=== PATIENT | female | born 1955 | race Caucasian/White ===

== ENCOUNTER 2023-07-09 08:21 | Emergency (ER) | payer OTHER, SELFPAY ==
[2023-07-09 08:25] VITALS: BP 152/67
--- NOTE | 2023-07-09 08:58 | ED.GENMED ---
History of Present Illness
General
Chief Complaint: Head Injury
Source: patient
Exam Limitations: none
Time Seen by Provider: 07/09/23 08:35
Nursing documentation reviewed up to this point in time: agreed with
Travel History
Have you had any contact with someone who has COVID-19?: No
Do you have any symptoms of coronavirus? Fever > 100 degrees, chills, cough, shortness of breath, sore throat, loss of taste or smell, muscle aches, or headache?: No
History of Present Illness
History of Present Illness:
Patient is a 67-year-old female with past medical history of hypertension diabetes high cholesterol came in via private vehicle for evaluation of fall. Patient reports around 1:00 in the morning she remembers walking to the bathroom and
remembering shutting a light out and states her right leg gave out and she fell. She woke up on the ground this morning prior to arrival. She is not sure if she was unconscious at the time of the fall. She reports her head has blood on it. She
does complain of mild headache and neck soreness. She presents with a cervical collar from triage. She is not on blood thinners. She called her coworker to let them know she was not coming into work and he brought her here to the ER. She does
live alone.
Past History
Past History
ED Past Medical History: CAD, HTN, Hypercholesterolemia, Hypothyroidism, Other (Thyroid storm, diabetes) and Other (Previous stroke, diabetes, CABG, status post [place], hypertension, hypothyroidism)
ED Past Surgical History: Other (cabg)
Social History
Tobacco: Non-smoker
Alcohol: None
Employment: Employed
Family History
Family History: Other (Mother with Crohn's father with [place] and stroke)
Review of Systems
Review of Systems
Allergies reviewed?: Yes
All Other Systems: ROS reviewed and negative except as documented in HPI and ROS
Constitutional: Reports no symptoms; Denies fever, fatigue or chills
EENT: Reports no symptoms
Respiratory: Reports no symptoms
Cardiac: Reports no symptoms
ABD/GI: Reports no symptoms; Denies nausea or vomiting
Musculoskeletal: Reports back pain (low back pain )
Skin: Reports other (scalp abrasion)
Hematologic/Lymphatic: Reports no symptoms
Psychiatric: Reports no symptoms
Phy Exam
General Physical Exam
General Presentation: no apparent distress
General age: appears stated age
General Skin: warm and dry
General Habitus: elderly
General Mental: alert
General Hydration: appears well hydrated
Cardiovascular Exam
Cardiovascular Exam: bradycardia
Pulmonary Exam
Pulmonary Exam: lungs clear and no respiratory distress
Neurological Exam
Neurological Exam: alert and oriented x3
[place] Coma Scale
Eye Opening: Spontaneous
Verbal Response: Oriented
Motor Response: Obeys Commands
GCS Total Score: 15
Musculoskeletal Exam
Musculoskeletal Exam: full ROM
Skin Exam
Skin Exam: normal color and warm/dry
Psychiatric Exam
Psychiatric Exam: normal mood/affect
Course
Orders/Labs/Results
Orders:
Orders
07/09/23 08:36
Electrocardiogram (*1) Urgent
Reason for Study: Syncope
07/09/23 08:37
EKG- Treatment ONCE
07/09/23 08:48
CT Cervical Spine W/o Iv Contr Urgent
Comment:
Reason For Exam: trauma
CT Head W/o Iv Contrast Urgent
Comment:
Reason For Exam: trauma
07/09/23 08:49
Cardiac Monitoring- Treatment ONCE
EKG- Treatment ONCE
IV Insert/Care/Rem.- Treatment PRN
Tetanus/Diphth/Acelpertussis [Adacel] 0.5 ml IM .ONCE ONE
07/09/23 09:04
Complete Blood Count/With Diff Urgent
Comprehensive Metabolic Panel Urgent
Creatine Phosphokinase Urgent
Comment: ADD ON
07/09/23 09:43
0.9% Sodium Chloride 1000 ml [Nss] 1,000 ml IV BOLUS
07/09/23 10:40
Acetaminophen [Tylenol] 650 mg PO NOW STA
Ketorolac [Toradol] 15 mg IV NOW STA
07/09/23 10:41
Lumbar Spine Complete, 4 View [CR Lumbar Spine Comp Min 4 Vw*] Urgent
Comment:
Reason For Exam: trauma
07/09/23 10:55
Add On- LAB Urgent
Tests Added?: cpk
07/09/23 13:15
Physical Therapy Consult [Pt Eval And Treat] Urgent
Activity Level: Ambulate
Abnormal Lab Results
07/09/23
09:04
MPV 11.9 H fL
(7.4-10.4)
BUN 18 H mg/dl
(7-17)
Creatinine 0.5 L mg/dL
(0.6-1.0)
Glucose 142 H mg/dl
(70-99)
AST 41 H U/L
(14-36)
ALT 42 H U/L
(0-35)
07/09/23 09:04
07/09/23 09:04
Vital Signs
Initial and Last Documented VS:
Initial Vital Signs
Temp Pulse Resp BP Pulse Ox
98.2 F 56 18 152/67 98
07/09/23 08:25 07/09/23 08:25 07/09/23 08:25 07/09/23 08:25 07/09/23 08:25
Last Documented Vital Signs
Temp Pulse Resp BP Pulse Ox
98.2 F 55 16 142/69 96
07/09/23 08:25 07/09/23 14:30 07/09/23 14:30 07/09/23 12:00 07/09/23 12:45
Mix House Operator consulted with Physician
Mix House Operator consulted with physician?: Yes
Name of Physician Consulted: Nat
MDM/Problems Addressed
Differential Diagnosis Includes:
Not limited to syncope, head injury, scalp laceration, lumbar fracture first contusion
MDM/Problems Addressed:
Patient is a 67-year-old female who presented to the ER for evaluation of fall. Patient presents to the awake alert as documented she was going to the bathroom at 1 AM and she remembers falling hitting the back of her head and woke up this morning.
She complains of stiff neck headache. She does have an obvious scalp laceration. She is not on blood thinners. She has no complaints of extremity injury. Patient presented with stable vital signs she is awake alert oriented x 3 no recent
illness no fevers here and has a normal white count stable hemoglobin. BUN 18 creatinine 0.5. Sinus bradycardia on EKG unchanged. Patient was given fluids here in the ER and monitored. CPK normal. Patient had a CAT scan of the head and cervical
spine which was negative. Patient did complain of some lumbar discomfort tender on exam but no obvious injury and lumbar spine x-rays negative. Patient was monitored here feeling better ambulatory evaluated by physical therapy wants to go home and
nontoxic. She was able to walk with her cane and is steady. She sat up and ate a meal here and is feeling better. Case reviewed with Dr. Johns will DC home. Not limited to syncope
*Critical Care Note
Total Time (30-74mins, 75-104mins- exclusive of procedures): Not Applicable
ED Attending Note
-
Portions of this chart may have been created with voice recognition software.� Occasional wrong word or��sound alike� substitutions may have occurred due to the inherent limitations of voice recognition software.
Discharge Plan
Departure
Patient Disposition: Home (Routine Discharge)
Date of Disposition: 07/09/23
Time of Disposition: 15:02
Patient with high blood pressure during this ER visit?: Yes
Condition: Fair
Covid-19: Not Applicable
Discharge Problem:
Head injury
Instructions: Head Injury in Adults (DC), Contusion (DC)
Prescriptions:
No Action
insulin glargine [Lantus Solostar U-100 Insulin] 300 UNITS/3 ML insulin pen
50 units SC DAILY
Patient Comments:
patient takes in the morning
citalopram 10 MG tablet
10 mg PO DAILY
aspirin 81 MG tablet,delayed release (DR/EC)
81 mg PO DAILY
levothyroxine 125 MCG tablet
125 mcg PO DAILY
ibuprofen 200 MG tablet
400 mg PO Q4HPRN PRN (Reason: pain)
Patient Comments:
11/08/15 patient took 600mg this morning
rosuvastatin [Crestor] 40 MG tablet
40 mg PO DAILY
acetaminophen 325 MG tablet
650 mg PO Q4HPRN PRN (Reason: mild pain/BEACH/temp> 100.4F) Qty: 0 0RF
lisinopril 20 MG tablet
20 mg PO DAILY Qty: 30 0RF
nifedipine 30 MG tablet extended release
30 mg PO DAILY Qty: 30 0RF
methylprednisolone [Medrol (Donnie)] 4 MG tablets,dose pack
4 tab PO . DIRECT Qty: 1 0RF
Referrals:
Jeremiah Cifuentes MD [Family Provider] -
Activity Restrictions/Additional Instructions:
Wash scalp wound with soap and water twice a day with soap and water apply small layer of antibiotic ointment to the area stay well-hydrated. Please follow-up with family doctor in the next 2 days for reevaluation of your symptoms and return of
any worsening of symptoms. Your CAT scans were negative for acute injury. You were hydrated here in the ER. You may take Tylenol for discomfort.
Interventions
Interventions:
*Risk Screen - Suicide Last Done: 07/09/23 08:39
*General Assessment Last Done: 07/09/23 15:16
*Neglect/Abuse Screening Last Done: 07/09/23 08:39
ED- Fall Risk Assessment Last Done: 07/09/23 08:44
*ED COVID-19 Vaccine History Last Done: 07/09/23 08:37
*Nursing Disposition Last Done: 07/09/23 15:16
ED- Neurological Assessment Last Done: 07/09/23 08:39
ED-Skin Assessment Last Done: 07/09/23 08:40
Discharge Date and Time
Discharge Date/Time: 07/09/23 15:17
Print Language: INDONESIAN
[2023-07-09 09:02] VITALS: BP 123/50
[2023-07-09 09:12] LABS: % Basophils 0.6 % (0-2); % Eosinophils 2.9 % (0-6); % Immature Granulocytes 0.3 % (0-0.5); % Lymphocytes 25.8 % (20.5-51.1); % Monocytes 5.1 % (1.7-9.3); % Neutrophils 65.3 % (42.2-75.2); Absolute Basophils 0.1 10^3/uL (0-0.2); Absolute Eosinophils 0.3 10^3/uL (0-0.7); Absolute Lymphocytes 2.3 10^3/uL (1.2-3.4); Absolute Monocytes 0.5 10^3/uL (0.1-0.6); Absolute Neutrophils 5.8 10^3/uL (1.4-6.5); Hematocrit 38.4 % (37.0-47.0); Hemoglobin 12.9 g/dL (12.0-16.0); Mean Corp Hgb Conc. 33.6 g/dL (33.0-37.0); Mean Corpuscular Hgb 29.5 pg (27.0-31.0); Mean Corpuscular Volume 87.9 fL (81.0-99.0); Mean Platelet Volume 11.9 fL (7.4-10.4); Nucleated Red Blood Cells % 0 %; Platelet Count 168 10^3/uL (130-400); Red Blood Cell Count 4.37 10^6/uL (4.20-5.40); Red Cell Dist. Width 12.9 % (11.5-14.5); White Blood Cell Count 8.9 10^3/uL (4.8-10.8)
[2023-07-09] MEDS: ADACEL 0.5 ML IM (09:22)
[2023-07-09 09:25] LABS: ALT (SGPT) 42 U/L (0-35); AST (SGOT) 41 U/L (14-36); Alkaline Phosphatase 66 U/L (38-126); Blood Urea Nitrogen 18 mg/dl (7-17); Calcium 9.6 mg/dl (8.4-10.2); Carbon Dioxide 26 mmol/L (22-30); Chloride 105 mmol/L (98-107); Glucose 142 mg/dl (70-99); Potassium 4.5 mmol/L (3.5-5.1); Sodium 136 mmol/L (135-145); Total Bilirubin 0.8 mg/dl (0.2-1.3); Total Protein 7.1 g/dl (6.3-8.2); eGFR > 60.00
[2023-07-09] MEDS: NSS 1000 IV (09:46)
[2023-07-09 10:10] VITALS: BP 142/51
[2023-07-09] MEDS: TYLENOL 650 MG PO (10:50)
[2023-07-09] MEDS: TORADOL 15 MG IV (10:50)
[2023-07-09 11:24] VITALS: BP 155/66
[2023-07-09 12:00] VITALS: BP 142/69
[2023-07-09 14:00] VITALS: PULSE 48
--- NOTE | 2023-07-09 14:36 | EDRN ---
call to lab again to see about pending CPK RESULT ( 3 HOURS WAIT). tHE MEDICAL DIR STATED IT WILL BE RESULTED IN 5 MINUTES
[2023-07-09 14:56] LABS: Creatine Phosphokinase 118 U/L (30-135)
== END 2023-07-09 15:17 | disposition home or self-care (01) ==
LOC: EMR 08:21
PROVIDERS: Nurse Practitioner; EMERGENCY PHYSICIAN Emergency Medicine; FAMILY PHYSICIAN Family Medicine
DX: S09.90XA Unspecified injury of head, initial encounter (principal); S01.01XA Laceration without foreign body of scalp, initial encounter; W19.XXXA Unspecified fall, initial encounter; I10 Essential (primary) hypertension; E11.9 Type 2 diabetes mellitus without complications; E78.00 Pure hypercholesterolemia, unspecified; Z23 Encounter for immunization
CPT/HCPCS: 99285; 96374; 96361; 90471; 70450; 72110; 72125; 80053; 82550; 85025; 90715; 93005

== ENCOUNTER 2023-10-16 15:53 | Emergency (ER) | payer OTHER, SELFPAY ==
[2023-10-16 15:56] VITALS: BP 103/71
--- NOTE | 2023-10-16 16:11 | ED.GENMED ---
History of Present Illness
<Rneetta Barroso MD, Resident - Last Filed: 10/16/23 18:27>
General
Chief Complaint: Dizziness
Time Seen by Provider: 10/16/23 16:11
History of Present Illness
History of Present Illness:
The patient is a 67 yo female who presented to ER today after she was seen by her PCP. The patient has been feeling lightheaded, dizziness and left side weakness since last 10 days. She reported that she was at [place] last week and fall down
twice. [employer] staff examined her at her sister`s home and they told that she had her left facial side dropped. But she did not want to go hospital there. She reported that she started to feel kind of unstable at the beginning of the June and
fall of from her car at the and of the June 2023. She was brought to [place] ER at that kay and her head CT results were unremarkable. Additionally, the patient reported some chest pain today am on her right side and she does not feel it now.
She denies current chest pain, shortness of breath, loosing her conciseness.
PMH:
Hypothyroidism
CAD
HL
DM 2
TIA (several) Underwent carotid revascularization
Carotis artery disease
Hx of complicated Stroke
DJD
CKD
If applicable-neuro sx onset
Date of onset of symptoms: 10/16/23
Past History
<Renetta Barroso MD, Resident - Last Filed: 10/16/23 18:27>
Past History
ED Past Medical History: CAD, HTN, Hypercholesterolemia, Hypothyroidism, Other (Thyroid storm, diabetes) and Other (Previous stroke, diabetes, CABG, status post [place], hypertension, hypothyroidism)
ED Past Surgical History: Other (cabg)
Social History
Tobacco: Non-smoker
Alcohol: None
Employment: Employed
Family History
Family History: Other (Mother with Crohn's father with [place] and stroke)
Phy Exam
<Renetta Barroso MD, Resident - Last Filed: 10/16/23 18:27>
General Physical Exam
General Presentation: moderate distress
General age: appears older than age
General Skin: warm
General Mental: alert
Eye Exam
Eye Exam: EOMI and conjunctiva normal
Cardiovascular Exam
Cardiovascular Exam: regular rate/rhythm, no edema and no JVD
Pulmonary Exam
Pulmonary Exam: lungs clear, no respiratory distress, no crackles, no stridor and no wheezing
Gastrointestinal Exam
Gastrointestinal Exam: non tender and soft
Neurological Exam
Neurological Exam: alert, oriented x3, CN II-XII intact, normal reflexs, speech normal, motor weakness (left upper/lower extremity motor exam 4/5), sensory deficit and other (Left uooer/lower extremity motor 4/5. Diminished sensation on left side of
the body and face. No fascial weakness)
Musculoskeletal Exam
Musculoskeletal Exam: full ROM and no edema
Course
<Renetta Barroso MD, Resident - Last Filed: 10/16/23 18:27>
Orders/Labs/Results
Orders:
Orders
10/16/23 15:59
Electrocardiogram (*1) Urgent
Reason for Study: Vertigo / Dizzy
EKG- Treatment ONCE
10/16/23 16:50
Comprehensive Metabolic Panel Urgent
Troponin I Urgent
Comment: dizziness
10/16/23 16:51
Complete Blood Count/With Diff Urgent
10/16/23 17:10
CT Head W/o Iv Contrast Urgent
Comment:
Reason For Exam: off-balance
Abnormal Lab Results
10/16/23 10/16/23
16:50 16:51
MPV 12.2 H fL
(7.4-10.4)
BUN 18 H mg/dl
(7-17)
Glucose 138 H mg/dl
(70-99)
10/16/23 16:51
10/16/23 16:50
Vital Signs
Initial and Last Documented VS:
Initial Vital Signs
Temp Pulse Resp BP Pulse Ox
98.0 F 61 16 103/71 98
10/16/23 15:56 10/16/23 15:56 10/16/23 15:56 10/16/23 15:56 10/16/23 15:56
Last Documented Vital Signs
Temp Pulse Resp BP Pulse Ox
98.0 F 52 15 154/68 96
10/16/23 15:56 10/16/23 18:15 10/16/23 18:15 10/16/23 17:00 10/16/23 18:15
<Zoë Martinez, DO - Last Filed: 10/16/23 18:47>
Orders/Labs/Results
Orders:
Orders
10/16/23 15:59
Electrocardiogram (*1) Urgent
Reason for Study: Vertigo / Dizzy
EKG- Treatment ONCE
10/16/23 16:50
Comprehensive Metabolic Panel Urgent
Troponin I Urgent
Comment: dizziness
10/16/23 16:51
Complete Blood Count/With Diff Urgent
10/16/23 17:10
CT Head W/o Iv Contrast Urgent
Comment:
Reason For Exam: off-balance
Abnormal Lab Results
10/16/23 10/16/23
16:50 16:51
MPV 12.2 H fL
(7.4-10.4)
BUN 18 H mg/dl
(7-17)
Glucose 138 H mg/dl
(70-99)
10/16/23 16:51
10/16/23 16:50
Vital Signs
Initial and Last Documented VS:
Initial Vital Signs
Temp Pulse Resp BP Pulse Ox
98.0 F 61 16 103/71 98
10/16/23 15:56 10/16/23 15:56 10/16/23 15:56 10/16/23 15:56 10/16/23 15:56
Last Documented Vital Signs
Temp Pulse Resp BP Pulse Ox
98.0 F 52 15 154/68 96
10/16/23 15:56 10/16/23 18:15 10/16/23 18:15 10/16/23 17:00 10/16/23 18:15
<Renetta Barroso MD, Resident - Last Filed: 10/16/23 18:27>
*Critical Care Note
Total Time (30-74mins, 75-104mins- exclusive of procedures): Not Applicable
<Renetta Barroso MD, Resident - Last Filed: 10/16/23 18:27>
Comment
Comment:
TIA, Head trauma, electrolyte imbalance,musculoskeletal problems?
ED Attending Note
<Renetta Barroso MD, Resident - Last Filed: 10/16/23 18:27>
-
Portions of this chart may have been created with voice recognition software.� Occasional wrong word or��sound alike� substitutions may have occurred due to the inherent limitations of voice recognition software.
<Zoë Martinez DO - Last Filed: 10/16/23 18:47>
ED Attending Note
Patient seen and examined by attending physician: Yes
I performed the substantive portion of visit, reviewed & personally made and approve the management plan that is documented in note by myself or BECKY.: Yes
I performed a history and physical exam of patient and discussed management with resident, I reviewed resident's note and agree with documented findings and plan of care.: Yes
ED Attending Note:
Patient seen and evaluated bedside. 67-year-old female with history of prior TIA and CVA presenting to the emergency department for dizziness and feeling off balance. Patient notes she been having balance issues essentially since June. She had a
fall in June, was seen in the emergency department, had a negative head CT. She reports about 10 years ago she had a stroke, found to have carotid stenosis, with stent placement. A week ago she was in [place], had 2 falls, which she reports
woke by feeling 'wobbly '. She attributes it to having some left-sided weakness, which she has had since June. She has been ambulating with a walker. She denies any new weakness or sensory issues. She saw her PCP today who advised to come to
the hospital for evaluation. Denies any present dizziness or chest pain. Vital signs within normal limits, bradycardic, however has not bradycardic on prior EKG in the past.
On exam, patient well-appearing, no acute distress. She is awake and alert. On neurologic exam, she is moving all extremities equally, slight objective weakness to the left lower extremity comparison to the right, however 5/5. Patient reports
some mildly decreased sensation to the left upper and lower extremity comparison to the right, however notes this is also been present since June. Suspect that patient's symptoms could be secondary to neurologic issues such as prior CVA, however
does not appear to be acute in nature send symptoms have been ongoing for several months. Will screen with laboratory analysis and CT brain. EKG obtained, nonischemic, no arrhythmia.
18:30 - EKG without acute stroke, does show old strokes. Continue to suspect that patient symptoms could be secondary to prior CVA. Patient has not been following with a neurologist. Feel patient warrants close neurologic follow-up. However,
given chronicity of symptoms, no indication for admission. Will start a baby aspirin. Strict return precautions were communicated to patient and friend at bedside who verbalized understanding.
Discharge Plan
Departure
Patient Disposition: Home (Routine Discharge)
Date of Disposition: 10/16/23
Time of Disposition: 18:38
Patient with high blood pressure during this ER visit?: No
Discharge Problem:
Balance problem
Instructions: Dizziness
Prescriptions:
No Action
insulin glargine [Lantus Solostar U-100 Insulin] 300 UNITS/3 ML insulin pen
50 units SC DAILY
Patient Comments:
patient takes in the morning
citalopram 10 MG tablet
10 mg PO DAILY
aspirin 81 MG tablet,delayed release (DR/EC)
81 mg PO DAILY
levothyroxine 125 MCG tablet
125 mcg PO DAILY
ibuprofen 200 MG tablet
400 mg PO Q4HPRN PRN (Reason: pain)
Patient Comments:
11/08/15 patient took 600mg this morning
rosuvastatin [Crestor] 40 MG tablet
40 mg PO DAILY
acetaminophen 325 MG tablet
650 mg PO Q4HPRN PRN (Reason: mild pain/BEACH/temp> 100.4F) Qty: 0 0RF
lisinopril 20 MG tablet
20 mg PO DAILY Qty: 30 0RF
nifedipine 30 MG tablet extended release
30 mg PO DAILY Qty: 30 0RF
methylprednisolone [Medrol (Donnie)] 4 MG tablets,dose pack
4 tab PO . DIRECT Qty: 1 0RF
Referrals:
Zak Pickett MD [Active] - (off-balance, prior CVA)
Jeremiah Cifuentes MD [Family Provider] -
Activity Restrictions/Additional Instructions:
You were seen in the emergency department for feeling off balanced
You were found to have a normal CT scan, however did show strokes that you had in the past. You will need to follow-up with a neurologist.
Please follow-up closely with your primary care physician.
Return to the emergency department for any worsening of your symptoms, or any development of chest pain, difficulty breathing, abdominal pain with persistent vomiting and inability to tolerate food or liquid by mouth (concern for dehydration),
weakness, headache or confusion, bili to walk, fever greater than 100.4, or any additional symptoms that are concerning to you.
Thank you for choosing [facility].
Interventions
Interventions:
*Risk Screen - Suicide Last Done: 10/16/23 16:40
*General Assessment Last Done: 10/16/23 16:40
*Neglect/Abuse Screening Last Done: 10/16/23 16:40
*ED COVID-19 Vaccine History Last Done: 10/16/23 16:40
ED- Neurological Assessment Last Done: 10/16/23 16:40
ED- Cardiac Assessment Last Done: 10/16/23 16:30
ED Swallowing Screen Last Done: 10/16/23 16:30
Discharge Date and Time
Print Language: [id number]
[2023-10-16 16:38] VITALS: BMI 34.5
[2023-10-16 16:39] VITALS: BP 117/52
[2023-10-16 17:00] VITALS: BP 154/68
[2023-10-16 17:04] LABS: % Basophils 0.4 % (0-2); % Eosinophils 4.5 % (0-6); % Immature Granulocytes 0.1 % (0-0.5); % Lymphocytes 32.8 % (20.5-51.1); % Monocytes 4.9 % (1.7-9.3); % Neutrophils 57.3 % (42.2-75.2); Absolute Eosinophils 0.3 10^3/uL (0-0.7); Absolute Lymphocytes 2.5 10^3/uL (1.2-3.4); Absolute Monocytes 0.4 10^3/uL (0.1-0.6); Absolute Neutrophils 4.4 10^3/uL (1.4-6.5); Hematocrit 38.4 % (37.0-47.0); Hemoglobin 13.3 g/dL (12.0-16.0); Mean Corp Hgb Conc. 34.6 g/dL (33.0-37.0); Mean Corpuscular Hgb 30.6 pg (27.0-31.0); Mean Corpuscular Volume 88.3 fL (81.0-99.0); Mean Platelet Volume 12.2 fL (7.4-10.4); Nucleated Red Blood Cells % 0 %; Platelet Count 169 10^3/uL (130-400); Red Blood Cell Count 4.35 10^6/uL (4.20-5.40); Red Cell Dist. Width 13.5 % (11.5-14.5); White Blood Cell Count 7.6 10^3/uL (4.8-10.8)
[2023-10-16 17:25] LABS: Troponin I < 0.012 ng/ml
[2023-10-16 17:31] LABS: ALT (SGPT) 17 U/L (0-35); AST (SGOT) 26 U/L (14-36); Albumin 4.1 g/dl (3.5-5.0); Alkaline Phosphatase 72 U/L (38-126); Blood Urea Nitrogen 18 mg/dl (7-17); Calcium 9.7 mg/dl (8.4-10.2); Carbon Dioxide 28 mmol/L (22-30); Chloride 104 mmol/L (98-107); Estimated Creatinine Clearance 67 ml/min; Glucose 138 mg/dl (70-99); Potassium 4.5 mmol/L (3.5-5.1); Sodium 138 mmol/L (135-145); Total Bilirubin 0.6 mg/dl (0.2-1.3); Total Protein 6.9 g/dl (6.3-8.2); eGFR > 60.00
== END 2023-10-16 18:51 | disposition home or self-care (01) ==
LOC: EMR 15:53
PROVIDERS: Student in an Organized Health Care Education/Training Program; EMERGENCY PHYSICIAN Student in an Organized Health Care Education/Training Program; FAMILY PHYSICIAN Family Medicine
DX: R26.89 Other abnormalities of gait and mobility (principal); Z86.73 Personal history of transient ischemic attack (TIA), and cerebral infarction without residual deficits
CPT/HCPCS: 99285; 70450; 80053; 84484; 85025; 93005

== ENCOUNTER 2024-11-12 11:24 | Emergency (ER) | payer OTHER, SELFPAY ==
[2024-11-12 11:26] VITALS: BP 179/83
[2024-11-12 12:00] VITALS: BP 158/84
[2024-11-12 12:09] VITALS: BMI 31.9
[2024-11-12 13:32] LABS: Hematocrit 39.6 % (37.0-47.0); Hemoglobin 13.2 g/dL (12.0-16.0); Mean Corp Hgb Conc. 33.3 g/dL (33.0-37.0); Mean Corpuscular Volume 84.3 fL (81.0-99.0); Nucleated Red Blood Cells % 0 %; Platelet Count 180 10^3/uL (130-400); Red Cell Dist. Width 13.2 % (11.5-14.5)
[2024-11-12 13:41] LABS: INR 0.85; PT 12.1 Sec (11.4-14.6)
[2024-11-12 13:55] LABS: ALT (SGPT) 24 U/L (0-35); AST (SGOT) 25 U/L (14-36); Albumin 4.5 g/dl (3.5-5.0); Alkaline Phosphatase 87 U/L (38-126); Blood Urea Nitrogen 11 mg/dl (7-17); Calcium 10.2 mg/dl (8.4-10.2); Carbon Dioxide 29 mmol/L (22-30); Chloride 105 mmol/L (98-107); Estimated Creatinine Clearance 96 ml/min; Glucose 142 mg/dl (70-99); Potassium 4.2 mmol/L (3.5-5.1); Sodium 140 mmol/L (135-145); Total Protein 7.9 g/dl (6.3-8.2); eGFR > 60.00
[2024-11-12 13:58] LABS: Troponin I < 0.012 ng/ml
[2024-11-12 14:03] LABS: APTT 22.5 Sec (23.4-35.0)
--- NOTE | 2024-11-12 15:36 | ED.MUSCINJ ---
HPI-Injury
General
Chief Complaint: Fall
Source: patient
Exam Limitations: none
Time Seen by Provider: 11/12/24 11:42
History of Present Illness-Injury
Initial Injury comments:
68-year-old female insulin-dependent diabetic with history of stroke coronary artery disease hyperlipidemia AR presents from home where she lives by herself with multiple falls. She states over the past week her left arm has been limp. She denies
associated chest pain or shortness of breath. She describes her fall as being more of a sliding out of her chair. The chair seems to push her into an angle where she slides out of chair ends up on the ground and is too weak to get herself off the
ground. She typically uses a cane to ambulate. There has been no fever. She does not drink alcohol. She denies headache or neck pain. No other complaints at this time
Past History
Past History
ED Past Medical History: CAD, HTN, Hypercholesterolemia, Hypothyroidism, Other (Thyroid storm, diabetes) and Other (Previous stroke, diabetes, CABG, status post [place], hypertension, hypothyroidism)
ED Past Surgical History: Other (cabg)
Social History
Tobacco: Non-smoker
Alcohol: None
Employment: Employed
Family History
Family History: Other (Mother with Crohn's father with AR and stroke)
Phy Exam
Physical Exam
Physical Exam:
General: Well-appearing female in no acute respiratory distress
HEENT: Normocephalic atraumatic
Heart: Regular rate and rhythm no murmurs lungs: Clear no wheeze
Abdomen is soft nontender nondistended
Neurologic exam: Alert and oriented x 3 no facial asymmetry dysarthria or aphasia. Good strength without any drift to the lower extremities bilaterally examination of the upper extremities demonstrates normal right upper extremity. She has a wrist
drop to the left upper extremity. She has weakness with elbow flexion but has strong elbow extension. She is unable to extend the wrist on the left side however she is able to lift the shoulder. She has good sensation to the left hand
Vascular: 2+ radial pulse left wrist skin is warm without erythema
Injury Course
Orders/Labs/Results
Orders:
Orders
11/12/24 11:29
Electrocardiogram (*1) Urgent
Reason for Study: Other
Other Reason for Exam: Possible Stroke
11/12/24 11:30
EKG- Treatment ONCE
11/12/24 11:32
CT Head W/o Iv Contrast Urgent
Comment:
Reason For Exam: frequent falls left arm weakness
11/12/24 11:33
CT Cervical Spine W/o Iv Contr Urgent
Comment:
Reason For Exam: left arm weakness
11/12/24 13:18
Complete Blood Count/With Diff Urgent
Comprehensive Metabolic Panel Urgent
Creatine Phosphokinase Urgent
Comment: ADD ON
PTT Urgent
Prothrombin Time Urgent
Troponin I Urgent
11/12/24 13:31
Add On- LAB Urgent
Tests Added?: cpk
11/12/24 15:00
Urinalysis Reflex To Culture Urgent
Date Specimen was Collected: 11/12/24
Time Specimen was Collected: 11:30
11/12/24 15:04
[place] Wrist Left-Treatment ONCE
11/12/24 15:35
Case Management Consult ONCE
Case Management Consult: VN/Home Care
Abnormal Lab Results
11/12/24
13:18
MPV 11.9 H fL
(7.4-10.4)
APTT 22.5 L Sec
(23.4-35.0)
Glucose 142 H mg/dl
(70-99)
11/12/24 13:18
11/12/24 13:18
MDM/Problems Addressed
Differential Diagnosis Includes:
Multiple falls. Patient describes a mechanical issue with a chair she sits and that she slides out of the chair and is unable to get herself off the ground. She states she was leaning on her arm for some time and since then she has been unable to
lift her elbow up. History of stroke. Consider recurrent TIA versus CVA versus intracranial hemorrhage versus peripheral nerve palsy.
Check labs urinalysis CT of head and cervical spine
*Pulse Oximetry
SaO2: 100
Oxygen Mode of Delivery: Room air
Patient hypoxic: no
*Critical Care Note
Total Time (30-74mins, 75-104mins- exclusive of procedures): Not Applicable
Update Note
Update Note:
CT of head and cervical spine showed no obvious acute findings.
Offered admission to hospital given her social status of living alone and multiple falls and dysfunctional left arm however the patient declined. Case management consult placed for visiting nurse to be set up. Patient will follow-up with her
family doctor
I did send a message to her doctor of record, Dr. Jeremiah Cifuentes via tiger text.
ED Attending Note
-
Portions of this chart may have been created with voice recognition software.� Occasional wrong word or��sound alike� substitutions may have occurred due to the inherent limitations of voice recognition software.
Discharge Plan
Departure
Patient Disposition: Home (Routine Discharge)
Date of Disposition: 11/12/24
Time of Disposition: 15:49
Patient with high blood pressure during this ER visit?: No
Discharge Problem:
Acute radial nerve palsy, Falls
Instructions: Preventing falls in adults
Prescriptions:
No Action
insulin glargine [Lantus Solostar U-100 Insulin] 300 UNITS/3 ML insulin pen
50 units SC DAILY
Patient Comments:
patient takes in the morning
citalopram 10 MG tablet
10 mg PO DAILY
aspirin 81 MG tablet,delayed release (DR/EC)
81 mg PO DAILY
levothyroxine 125 MCG tablet
125 mcg PO DAILY
ibuprofen 200 MG tablet
400 mg PO Q4HPRN PRN (Reason: pain)
Patient Comments:
11/08/15 patient took 600mg this morning
rosuvastatin [Crestor] 40 MG tablet
40 mg PO DAILY
acetaminophen 325 MG tablet
650 mg PO Q4HPRN PRN (Reason: mild pain/BEACH/temp> 100.4F) Qty: 0 0RF
lisinopril 20 MG tablet
20 mg PO DAILY Qty: 30 0RF
nifedipine 30 MG tablet extended release
30 mg PO DAILY Qty: 30 0RF
methylprednisolone [Medrol (Donnie)] 4 MG tablets,dose pack
4 tab PO . DIRECT Qty: 1 0RF
Referrals:
Jeremiah Cifuentes MD [Family Provider, Family Practice]
Activity Restrictions/Additional Instructions:
Use the brace to support your wrist. Please return here for any worsening symptoms otherwise follow-up closely with your doctor.
Interventions
Interventions:
*Risk Screen - Suicide Last Done: 11/12/24 11:26
*General Assessment Last Done: 11/12/24 11:26
*Neglect/Abuse Screening Last Done: 11/12/24 11:26
*ED COVID-19 Vaccine History Last Done: 11/12/24 11:26
ED-Musculoskeletal Assessment Last Done: 11/12/24 12:07
ED- Neurological Assessment Last Done: 11/12/24 12:04
ED-Skin Assessment Last Done: 11/12/24 12:07
Discharge Date and Time
Print Language: MACEDONIAN
--- NOTE | 2024-11-12 16:18 | CM ---
CM met with pt bedside
ED consult for VN
Referral to [facility] per request/[facility] Liaison
Address is [address] [place] [address] [place] [id number]
PCP visit within last month with Dr Jeremiah Cifuentes
--- NOTE | 2024-11-12 16:19 | VNURNOTE ---
Home Health Liaison met with patient and sig other at bedside to discuss [facility] nurse/therapy, visits, schedule and homebound status. Patient is agreeable and understands that visits at home will be 2-3 x per week to assess and teach medical
management.
Patient is aware that [facility] will contact them for start of care in 1-2 days after discharge from . Provided contact number for [facility].
[facility] referral completed in [facility].
--- NOTE | 2024-11-12 16:31 | EDRN ---
Reviewed discharge instructions with patient. Verbalized understanding. Taken to lobby in wheelchair.
[2024-11-12 16:35] VITALS: BP 153/82
== END 2024-11-12 16:30 | disposition home or self-care (01) ==
LOC: EMR 11:24
PROVIDERS: Emergency Medicine; EMERGENCY PHYSICIAN Emergency Medicine; FAMILY PHYSICIAN Family Medicine
DX: G56.32 Lesion of radial nerve, left upper limb (principal); E10.9 Type 1 diabetes mellitus without complications; I25.810 Atherosclerosis of coronary artery bypass graft(s) without angina pectoris; I10 Essential (primary) hypertension; E78.00 Pure hypercholesterolemia, unspecified; I25.2 Old myocardial infarction; E03.9 Hypothyroidism, unspecified; R29.6 Repeated falls; Z60.2 Problems related to living alone; Z79.4 Long term (current) use of insulin; Z79.82 Long term (current) use of aspirin; Z86.73 Personal history of transient ischemic attack (TIA), and cerebral infarction without residual deficits; Z95.1 Presence of aortocoronary bypass graft; Z82.3 Family history of stroke; Z82.49 Family history of ischemic heart disease and other diseases of the circulatory system
CPT/HCPCS: 99284; 70450; 72125; 80053; 82550; 84484; 85025; 85610; 85730; 93005

== ENCOUNTER 2024-11-16 13:45 | Emergency (ER) | payer OTHER, SELFPAY ==
[2024-11-16 13:48] VITALS: BP 178/77
--- NOTE | 2024-11-16 14:35 | ED.GENMED ---
History of Present Illness
General
Chief Complaint: Fall
Time Seen by Provider: 11/16/24 14:07
History of Present Illness
History of Present Illness:
68-year-old female with history of hypertension, diabetes, hyperlipidemia presenting after a fall. Patient reports chronic balance issues and prior to arrival was going out side of her house to get a food delivery. She lost her balance and fell
backwards, striking her head. Denies loss of conscious. She is not on a blood thinner. She denies any visual changes. She denies any weakness or numbness of her extremities. Does report a chronic left upper extremity weakness, suspect a
secondary to a nerve palsy. Denies fever or recent illness. Denies prodromal symptoms for a fall such as dizziness or lightheadedness. Denies any additional injuries. Denies additional acute medical complaints
Past History
Past History
ED Past Medical History: CAD, HTN, Hypercholesterolemia, Hypothyroidism, Other (Thyroid storm, diabetes) and Other (Previous stroke, diabetes, CABG, status post [place], hypertension, hypothyroidism)
ED Past Surgical History: Other (cabg)
Social History
Tobacco: Non-smoker
Alcohol: None
Employment: Employed
Family History
Family History: Other (Mother with Crohn's father with [place] and stroke)
Phy Exam
Physical Exam
Physical Exam:
General: Well-appearing, no clinical signs of dehydration, nontoxic and in no acute distress
HEENT: protecting airway
Head: Occipital hematoma with small laceration. Abrasion to the right parietal scalp
Neck: appears supple, no midline tenderness
CV: Normal heart rate, regular rhythm
Resp: No accessory muscle use, no increased work of breathing, lungs clear to auscultation bilaterally
Abd: No distention
Extremities: No deformities, no swelling
Neuro: alert, no focal neurologic deficit
: deferred
Rectal: deferred
Psych: Normal affect
Skin: Intact
Course
Orders/Labs/Results
Orders:
Orders
11/16/24 14:34
CT Head W/o Iv Contrast Urgent
Comment:
Reason For Exam: fall with occipital hematoma
Acetaminophen [Tylenol] 1,000 mg PO NOW STA
Vital Signs
Initial and Last Documented VS:
Initial Vital Signs
Temp Pulse Resp BP Pulse Ox
98.1 F 63 18 178/77 98
11/16/24 13:48 11/16/24 13:48 11/16/24 13:48 11/16/24 13:48 11/16/24 13:48
Last Documented Vital Signs
Temp Pulse Resp BP Pulse Ox
98.1 F 63 16 178/77 98
11/16/24 13:48 11/16/24 13:48 11/16/24 17:19 11/16/24 13:48 11/16/24 14:38
Procedures
Laceration Closure
Middle Posterior Scalp:
Status of Wound: clean
Size of Wound in cm: 2
Preparation: cleaned with saline
Type of Closure: single layer closure
Skin Closure Material: skin dre
Number of sutures: 2
MDM/Problems Addressed
MDM/Problems Addressed:
68-year-old female with hypertension, hyperlipidemia, diabetes presenting after a fall after losing her balance, positive head strike. Vital signs are significant for hypertension.
On exam, patient is resting comfortably, awake and alert. Patient with signs of head trauma, occipital hematoma with laceration. Additionally small abrasion to the right parietal scalp. Laceration was irrigated and repaired. Please see procedure
note. No additional signs of acute trauma on exam. No midline cervical neck tenderness. Given patient's head trauma and age, plan for CT brain imaging. Patient denies any prodromal symptoms to her fall without concern for near-syncope or syncope.
17:20 -CT head is negative. Patient remains hemodynamically stable. Feel stable for discharge with continued outpatient supportive therapy. Return precautions discussed with patient verbalized understanding
*Pulse Oximetry
SaO2: 98
Oxygen Mode of Delivery: Room air
Patient hypoxic: no
*Critical Care Note
Total Time (30-74mins, 75-104mins- exclusive of procedures): Not Applicable
ED Attending Note
-
Portions of this chart may have been created with voice recognition software.� Occasional wrong word or��sound alike� substitutions may have occurred due to the inherent limitations of voice recognition software.
Discharge Plan
Departure
Prescriptions:
No Action
insulin glargine [Lantus Solostar U-100 Insulin] 300 UNITS/3 ML insulin pen
50 units SC DAILY
Patient Comments:
patient takes in the morning
citalopram 10 MG tablet
10 mg PO DAILY
aspirin 81 MG tablet,delayed release (DR/EC)
81 mg PO DAILY
levothyroxine 125 MCG tablet
125 mcg PO DAILY
ibuprofen 200 MG tablet
400 mg PO Q4HPRN PRN (Reason: pain)
Patient Comments:
11/08/15 patient took 600mg this morning
rosuvastatin [Crestor] 40 MG tablet
40 mg PO DAILY
acetaminophen 325 MG tablet
650 mg PO Q4HPRN PRN (Reason: mild pain/BEACH/temp> 100.4F) Qty: 0 0RF
lisinopril 20 MG tablet
20 mg PO DAILY Qty: 30 0RF
nifedipine 30 MG tablet extended release
30 mg PO DAILY Qty: 30 0RF
methylprednisolone [Medrol (Donnie)] 4 MG tablets,dose pack
4 tab PO . DIRECT Qty: 1 0RF
Referrals:
Jeremiah Cifuentes MD [Family Provider, Family Practice]
Interventions
Interventions:
*Risk Screen - Suicide Last Done: 11/16/24 13:48
ED-Musculoskeletal Assessment Last Done: 11/16/24 17:19
ED- Neurological Assessment Last Done: 11/16/24 17:19
ED-Skin Assessment Last Done: 11/16/24 17:19
Discharge Date and Time
Print Language: MONEGASQUE
[2024-11-16] MEDS: TYLENOL 1000 MG PO (14:38)
[2024-11-16] MEDS: TORADOL 15 MG IM (17:28)
== END 2024-11-16 17:47 | disposition home or self-care (01) ==
LOC: EMR 13:45
PROVIDERS: EMERGENCY PHYSICIAN Student in an Organized Health Care Education/Training Program; FAMILY PHYSICIAN Family Medicine
DX: S01.01XA Laceration without foreign body of scalp, initial encounter (principal); W18.39XA Other fall on same level, initial encounter; I10 Essential (primary) hypertension; E78.00 Pure hypercholesterolemia, unspecified; E03.9 Hypothyroidism, unspecified; E11.9 Type 2 diabetes mellitus without complications; I25.10 Atherosclerotic heart disease of native coronary artery without angina pectoris; I25.2 Old myocardial infarction; Z95.1 Presence of aortocoronary bypass graft; Z86.73 Personal history of transient ischemic attack (TIA), and cerebral infarction without residual deficits
CPT/HCPCS: 96372; 12001; 99284; 70450

== ENCOUNTER 2024-12-14 09:38 | Inpatient (IN) | payer OTHER, SELFPAY ==
[2024-12-10 16:17] VITALS: BP 107/48
[2024-12-10 16:40] LABS: Hematocrit 38.2 % (37.0-47.0); Hemoglobin 12.9 g/dL (12.0-16.0); Mean Corp Hgb Conc. 33.8 g/dL (33.0-37.0); Mean Corpuscular Volume 86.2 fL (81.0-99.0); Nucleated Red Blood Cells % 0 %; Platelet Count 195 10^3/uL (130-400); Red Cell Dist. Width 14.1 % (11.5-14.5)
[2024-12-10 16:53] LABS: ALT (SGPT) 22 U/L (0-35); AST (SGOT) 26 U/L (14-36); Albumin 4.0 g/dl (3.5-5.0); Alkaline Phosphatase 70 U/L (38-126); Blood Urea Nitrogen 13 mg/dl (7-17); Calcium 9.3 mg/dl (8.4-10.2); Carbon Dioxide 30 mmol/L (22-30); Chloride 103 mmol/L (98-107); Estimated Creatinine Clearance 83 ml/min; Glucose 216 mg/dl (70-99); Potassium 4.3 mmol/L (3.5-5.1); Sodium 138 mmol/L (135-145); Total Protein 7.1 g/dl (6.3-8.2); eGFR > 60.00
[2024-12-10 17:29] LABS: Urine Character Clear (Clear)
--- NOTE | 2024-12-10 17:37 | ED.GENMED ---
History of Present Illness
<Mg Mayo, DO - Last Filed: 12/10/24 23:18>
General
Chief Complaint: Weakness
Time Seen by Provider: 12/10/24 16:40
<Nasreen Otero NP - Last Filed: 12/11/24 00:28>
General
Source: patient
Exam Limitations: none
Nursing documentation reviewed up to this point in time: agreed with
History of Present Illness
History of Present Illness:
Patient to ED with increasing weakness. States she has had multiple falls. SHe calls 911 to have ems or police help her off floor. She was seen in ED 11/12 for weakness to left arm following a fall, lying on floor for 5+ hours. Thought to be a
radial nerve palsy. She reports she is still having weakness in her arm and now arm is swollen. She denies any pain. Today her friend came by to see her and advised her to come to ED. Friend noted that she was much weaker than she has been,
unsteady on her feet. She denies fever/chills, recent illness. No n/v/d. No abd. pain, cp/pressure, SOB. Brought to ED via EMS for eval.
Past History
<Mg Mayo, DO - Last Filed: 12/10/24 23:18>
Past History
ED Past Medical History: CAD, HTN, Hypercholesterolemia, Hypothyroidism, Other (Thyroid storm, diabetes) and Other (Previous stroke, diabetes, CABG, status post [place], hypertension, hypothyroidism)
ED Past Surgical History: Other (cabg)
Social History
Tobacco: Non-smoker
Alcohol: None
Employment: Employed
Family History
Family History: Other (Mother with Crohn's father with NH and stroke)
Review of Systems
<Nasreen Otero LEAD FABRICATOR - Last Filed: 12/11/24 00:28>
Review of Systems
Allergies reviewed?: Yes
All Other Systems: ROS reviewed and negative except as documented in HPI and ROS
Constitutional: Reports fatigue
EENT: Reports no symptoms
Respiratory: Reports no symptoms
Cardiac: Reports no symptoms
ABD/GI: Reports no symptoms
: Reports no symptoms
Musculoskeletal: Reports other (swelling to left arm, weakness)
Skin: Reports no symptoms
Neurological: Reports weakness (generalized) and other (Left arm weakness and swelling)
Psychiatric: Reports no symptoms
Phy Exam
<Nasreen Otero LEAD FABRICATOR - Last Filed: 12/11/24 00:28>
General Physical Exam
General Presentation: mild distress
General age: appears stated age
General Skin: warm and dry
General Habitus: normal
General Mental: alert
Cardiovascular Exam
Cardiovascular Exam: regular rate/rhythm and no edema
Pulmonary Exam
Pulmonary Exam: lungs clear and no respiratory distress
Gastrointestinal Exam
Gastrointestinal Exam: normal bowel sounds and non tender
Neurological Exam
Neurological Exam: alert, oriented x3, CN II-XII intact and speech normal
Musculoskeletal Exam
Musculoskeletal Exam: neuro vasc intact and other (weakness swelling LUE)
Skin Exam
Skin Exam: normal color, warm/dry and no rash
Psychiatric Exam
Psychiatric Exam: normal mood/affect
Course
<Mg Mayo, DO - Last Filed: 12/10/24 23:18>
Orders/Labs/Results
Orders:
Orders
12/10/24 16:23
Electrocardiogram (*1) Urgent
Reason for Study: Abdominal Pain
EKG- Treatment ONCE
12/10/24 16:24
Complete Blood Count/With Diff Urgent
Comprehensive Metabolic Panel Urgent
Creatine Phosphokinase Urgent
Comment: ADD ON
TSH Reflex To Free T4 Routine
Comment: ADD ON
12/10/24 17:23
Urinalysis Reflex To Culture Urgent
Date Specimen was Collected: 12/10/24
Time Specimen was Collected: 17:22
Urine Microscopic Reflex Cult Urgent
Urine Culture Urgent
DARIUSZ Source: U
Specimen Description:
Date Specimen was Collected: 12/10/24
Time Specimen was Collected: 17:22
12/10/24 17:33
CT Head W/o Iv Contrast Urgent
Comment:
Reason For Exam: weakness, frequent falls
12/10/24 17:38
US Periph Venous UPPER Ext LT Urgent
Comment:
Reason For Exam: swelling
12/10/24 22:43
Admit/Transfer Patient As Directed
Co-Sign Provider:
Level of Care: Observation services
Assign to:: Medical/Surgical
Physician / Group: htay
Diagnosis: Falls, weakness, abnormal UA
Reason for Hospitalization: Falls - unremarkable labs
Generalized weakness unclear origins but suspect multifactorial plus
deconditioning
Abnormal UA - occult UTI with weakness
12/10/24 22:45
Code Status As Directed
Resuscitation Status: Full Code
Abnormal Lab Results
12/10/24 12/10/24
16:24 17:23
MPV 11.8 H fL
(7.4-10.4)
Glucose 216 H mg/dl
(70-99)
Leukocyte Esterase Rfl 3+ A
(Negative)
Urine WBC (Reflex) 11-15 A /HPF
(0-5)
Urine Bacteria (Reflex) Many A
(Negative)
Urine Glucose 1+ A
(Negative)
Urine Albumin (Reflex) 1+ A
(Neg - Trace)
12/10/24 16:24
12/10/24 16:24
Vital Signs
Initial and Last Documented VS:
Initial Vital Signs
Temp Pulse Resp BP Pulse Ox
97.9 F 50 20 107/48 95
12/10/24 16:17 12/10/24 16:17 12/10/24 16:17 12/10/24 16:17 12/10/24 16:17
Last Documented Vital Signs
Temp Pulse Resp BP Pulse Ox
97.5 F 59 27 160/76 96
12/10/24 19:17 12/10/24 22:15 12/10/24 22:15 12/10/24 22:00 12/10/24 22:45
<Nasreen Otero NP - Last Filed: 12/11/24 00:28>
Orders/Labs/Results
Orders:
Orders
12/10/24 16:23
Electrocardiogram (*1) Urgent
Reason for Study: Abdominal Pain
EKG- Treatment ONCE
12/10/24 16:24
Complete Blood Count/With Diff Urgent
Comprehensive Metabolic Panel Urgent
Creatine Phosphokinase Urgent
Comment: ADD ON
TSH Reflex To Free T4 Routine
Comment: ADD ON
12/10/24 17:23
Urinalysis Reflex To Culture Urgent
Date Specimen was Collected: 12/10/24
Time Specimen was Collected: 17:22
Urine Microscopic Reflex Cult Urgent
Urine Culture Urgent
DARIUSZ Source: U
Specimen Description:
Date Specimen was Collected: 12/10/24
Time Specimen was Collected: 17:22
12/10/24 17:33
CT Head W/o Iv Contrast Urgent
Comment:
Reason For Exam: weakness, frequent falls
12/10/24 17:38
US Periph Venous UPPER Ext LT Urgent
Comment:
Reason For Exam: swelling
12/10/24 22:43
Admit/Transfer Patient As Directed
Co-Sign Provider:
Level of Care: Observation services
Assign to:: Medical/Surgical
Physician / Group: htay
Diagnosis: Falls, weakness, abnormal UA
Reason for Hospitalization: Falls - unremarkable labs
Generalized weakness unclear origins but suspect multifactorial plus
deconditioning
Abnormal UA - occult UTI with weakness
12/10/24 22:45
Code Status As Directed
Resuscitation Status: Full Code
Abnormal Lab Results
12/10/24 12/10/24
16:24 17:23
MPV 11.8 H fL
(7.4-10.4)
Glucose 216 H mg/dl
(70-99)
Leukocyte Esterase Rfl 3+ A
(Negative)
Urine WBC (Reflex) 11-15 A /HPF
(0-5)
Urine Bacteria (Reflex) Many A
(Negative)
Urine Glucose 1+ A
(Negative)
Urine Albumin (Reflex) 1+ A
(Neg - Trace)
12/10/24 16:24
12/10/24 16:24
Vital Signs
Initial and Last Documented VS:
Initial Vital Signs
Temp Pulse Resp BP Pulse Ox
97.9 F 50 20 107/48 95
12/10/24 16:17 12/10/24 16:17 12/10/24 16:17 12/10/24 16:17 12/10/24 16:17
Last Documented Vital Signs
Temp Pulse Resp BP Pulse Ox
97.5 F 59 27 160/76 96
12/10/24 19:17 12/10/24 22:15 12/10/24 22:15 12/10/24 22:00 12/10/24 22:45
<Mg Mayo, DO - Last Filed: 12/10/24 23:18>
*Pulse Oximetry
SaO2: 95
Oxygen Mode of Delivery: Room air
<Nasreen Otero LEAD FABRICATOR - Last Filed: 12/11/24 00:28>
*Radiology
Radiology exam reviewed: radiology read reviewed
*Pulse Oximetry
Patient hypoxic: no
*Critical Care Note
Total Time (30-74mins, 75-104mins- exclusive of procedures): Not Applicable
<Nasreen Otero NP - Last Filed: 12/11/24 00:28>
Update Note
Update Note:
Patient to ED wtih report of worsening weakness, increasing falls - 10 x in 2 weeks Last fall was yesterday. She reports feeling unsteady. VSS, she remains afebrile. Labs reviewed, CT report reviewed, no concerning findings. She continues to
report weakness, numbness to LUE, recent diagnosis of radial nerve palsy. Now with swelling. US neg for DVT. Will admit to hospitalist for increasing weakness, frequent falls. Case discussed with Dr. Mayo who aslo evalutaed this patient. He
agrees with findings and plan.
ED Attending Note
<Mg Mayo DO - Last Filed: 12/10/24 23:18>
ED Attending Note
Patient seen and examined by attending physician: Yes
ED Attending Note:
I have reviewed and agree with history and treatment plan by Nasreen Otero. My exam revealed 68-year-old female with left wrist drop. Ambulation not assessed due to her weakness. Admit for further workup. Patient unsafe discharge at this time.
No signs of DVT.
-
Portions of this chart may have been created with voice recognition software.� Occasional wrong word or��sound alike� substitutions may have occurred due to the inherent limitations of voice recognition software.
Discharge Plan
Departure
Patient Disposition: Admit
Date of Disposition: 12/10/24
Time of Disposition: 22:03
Presentation/result/management discussed w/ accepting MD/DO: Hospitalist
Patient with high blood pressure during this ER visit?: No
Condition: Fair
Discharge Problem:
Weakness
Interventions
Interventions:
*Risk Screen - Suicide Last Done: 12/10/24 16:17
*General Assessment Last Done: 12/10/24 16:17
*Neglect/Abuse Screening Last Done: 12/10/24 16:17
*ED- Fall Risk Assessment Last Done: 12/10/24 19:13
*ED COVID-19 Vaccine History Last Done: 12/10/24 17:00
*ED Influenza Vaccine History Last Done: 12/10/24 17:00
ED- Cardiac Assessment Last Done: 12/10/24 19:13
ED- Neurological Assessment Last Done: 12/10/24 19:13
ED- Pulmonary Assessment Last Done: 12/10/24 19:13
[2024-12-10 17:43] LABS: Urine Squamous Cell >30 /LPF (Few)
[2024-12-10 17:44] LABS: Urine Red Blood Cell 0-2 /HPF (0-2)
[2024-12-10 19:02] VITALS: BP 127/78
[2024-12-10 20:37] VITALS: BP 142/69
[2024-12-10 21:00] VITALS: BP 141/73
[2024-12-10 22:00] VITALS: BP 160/76
--- NOTE | 2024-12-10 22:21 | HPS.HSE ---
Family Physician
-
Family Physician: Jeremiah Cifuentes
Chief Complaint
-
weakness and falls
History of Present Illness
68F HX CAD, CABG, MA, HTN, Hypercholesterolemia, Hypothyroidism, Thyroid storm, IDDM, stroke seen at ER:
- brought to ED via EMS for eval.
- pw increasing weakness complicated by multiple falls
- she calls 911 to have EMS or police help her off floor, was seen in ED 11/12 for weakness to left arm following a fall lying on floor for 5+ hours, complicated by presumed radial nerve palsy.
She reports she is still having weakness in her arm and now arm is swollen but denies any pain.
- Today Friend noted that she was much weaker than she has been, unsteady on her feet.
ROS
denies fever/chills, recent illness. No n/v/d. No abd. pain, cp/pressure, SOB.
Medical History
Past Medical History
Past Medical History: Reports CAD, CVA, HTN, Hypercholesterolemia, Hypothyroidism, IDDM and MA
Past Surgical History: Reports Cardiac (CABG )
Social History
Tobacco: Non-smoker
Alcohol: None
Family History
Family History: Other (Mother with Crohn's father with MA and stroke))
Allergies / Home Medications
Allergies reflects when Allergies were last updated in [facility].
Home Medications with original date entered in [facility]
Allergy/Medication List:
Allergies
Allergy/AdvReac Type Severity Reaction Status Date / Time
latex (Latex) Allergy Mild rash- Verified 12/10/24 16:22
slight
Home Medications
insulin glargine 100 unit/mL (3 mL) subcutaneous pen (Lantus Solostar U-100 Insulin) 50 units SC DAILY 08/15/10
aspirin 81 mg tablet,delayed release 81 mg PO DAILY 11/08/15
citalopram 10 mg tablet 10 mg PO DAILY 11/08/15
ibuprofen 200 mg tablet 400 mg PO Q4HPRN PRN pain 11/08/15
levothyroxine 125 mcg tablet 125 mcg PO DAILY 11/08/15
rosuvastatin 40 mg tablet (Crestor) 40 mg PO DAILY 11/08/15
acetaminophen 325 mg tablet 650 mg (2 x 325 mg) PO Q4HPRN PRN mild pain/BEACH/temp> 100.4F ##0 11/10/15
lisinopril 20 mg tablet 20 mg PO DAILY ##30 11/10/15
methylprednisolone 4 mg tablets in a dose pack (Medrol (Donnie)) 4 tab (4 x 4 mg) PO . DIRECT ##1 11/10/15
nifedipine 30 mg tablet,extended release 30 mg PO DAILY ##30 11/10/15
Review of Systems
-
Constitutional: Reports No Symptoms
EENT: Reports No Symptoms
Respiratory: Reports No Symptoms
Cardiac: Reports No Symptoms
Abdomen/GI: Reports No Symptoms
: Reports No Symptoms
Musculoskeletal: Reports No Symptoms
Skin: Reports No Symptoms
Neurological: Reports See HPI, Weakness (Lt arm) and Other (generalized weakness in both legs )
Endocrine: Reports No Symptoms
Hematologic/Lymphatic: Reports No Symptoms
Psych: Reports No Symptoms
Physical Exam
Vital Signs
Vital Signs
Temp Pulse Resp BP Pulse Ox
97.5 F 70 26 141/73 94
12/10/24 19:17 12/10/24 21:45 12/10/24 21:45 12/10/24 21:00 12/10/24 21:30
Physical Exam
General: Well Developed, Well Nourished and No Apparent Distress
HEENT: NormoCephalic, Moist mucous membranes and Atraumatic
Respiratory: Clear
Cardiac: S1/S2 and Regular Rhythm; No Murmur or Rub
GI: Soft, Non Tender, Non Distended and Normal Bowel Sounds; No Organomegaly
Rectal: Deferred by Provider
Musculoskeletal: No Clubbing, No Cyanosis and No Edema
Skin: No Rash
Neuro: Nonfocal/grossly intact
Laboratory Results
-
12/10/24 16:24
12/10/24 16:24
Laboratory Results
Total Bilirubin 0.7 mg/dl (0.2-1.3) 12/10/24 16:24
AST 26 U/L (14-36) 12/10/24 16:24
ALT 22 U/L (0-35) 12/10/24 16:24
Alkaline Phosphatase 70 U/L (38-126) 12/10/24 16:24
Data Reviewed
-
CT Scan: Report Reviewed by me
Ultrasound: Report Reviewed by me
Lab Data: Labs Reviewed by me
Old Records: Reviewed
Impression/Plan
-
Vital Signs
Temp Pulse Resp BP Pulse Ox
97.5 F 70 26 141/73 94
12/10/24 19:17 12/10/24 21:45 12/10/24 21:45 12/10/24 21:00 12/10/24 21:30
12/10/24
16:24
WBC 8.1
Potassium 4.3
Carbon Dioxide 30
Creatinine 0.7
eGFR > 60.00
EKG
SINUS BRADYCARDIA
OTHERWISE NORMAL ECG
WHEN COMPARED WITH ECG OF 12-Nov-2024 11:36,
NO SIGNIFICANT CHANGE WAS FOUND
Confirmed by TITO WYNN MD ([id number]) on 12/10/2024 4:54:22 PM
US Periph Venous UPPER Ext LT
No sonographic evidence for left upper extremity venous thrombosis.
CT Head W/o Iv Contrast
No acute intracranial abnormality noted.
No acute intracranial hemorrhage.
Chronic findings, including chronic ischemic change, chronic lacunar infarcts, and small remote posterior superior right frontal infarct. Atrophy.
ASSESSMENT & PLAN
Pending Rx reconciliation
Falls - unremarkable labs
Generalized weakness unclear origins but suspect multifactorial plus deconditioning
Abnormal UA - occult UTI with weakness
- NEG HCT
- check TSH, CPK
- Empiric gentle IVF
- [facility] IV CFTZ & FU UCX
- PT/OT
- CRM consult eval for SNF
Known HX
IDDM HX
HX CAD, CABG, MA
[facility] HTN
Hypercholesterolemia
Hypothyroidism
HX stroke
- Pending Rx reconciliation
DVT Px: LMWH
Full code
Obs MS
[2024-12-11] VITALS (7 sets, daily range): BP systolic 143–174; BP diastolic 60–87; PULSE 50–60; O2SAT 94; BMI 32.2
[2024-12-11] MEDS: NSS 1000 IV (01:40)
[2024-12-11 01:45] LABS: Glucose - Point of Care 269 mg/dl (70-99)
--- NOTE | 2024-12-11 03:45 | TRANSFER ---
Pt transferred to 3W from ED via stretcher. Pt stood and pivoted to hospital bed. Pt AAOx3, oriented to room, call de la cruz within reach, Plan of care ongoing.
[2024-12-11] MEDS: SYNTHROID 125 MCG PO (05:39)
[2024-12-11 07:52] LABS: Glucose - Point of Care 151 mg/dl (70-99)
[2024-12-11 08:05] LABS: Hematocrit 35.8 % (37.0-47.0); Hemoglobin 12.0 g/dL (12.0-16.0); Mean Corp Hgb Conc. 33.5 g/dL (33.0-37.0); Mean Corpuscular Volume 84.6 fL (81.0-99.0); Platelet Count 190 10^3/uL (130-400); Red Cell Dist. Width 14.1 % (11.5-14.5)
[2024-12-11] MEDS: ZESTRIL 20 MG PO (08:14)
[2024-12-11] MEDS: ASPIR LOW (ENTERIC COATED) 81 MG PO (08:14)
[2024-12-11] MEDS: CRESTOR 40 MG PO (08:14)
--- NOTE | 2024-12-11 08:40 | VNURNOTE ---
Chart reviewed. Patient is current with [facility]. Will continue to follow hospital course and DC plans.
[2024-12-11 08:44] LABS: Blood Urea Nitrogen 10 mg/dl (7-17); Calcium 9.2 mg/dl (8.4-10.2); Carbon Dioxide 24 mmol/L (22-30); Chloride 107 mmol/L (98-107); Estimated Creatinine Clearance 96 ml/min; Glucose 137 mg/dl (70-99); Potassium 4.1 mmol/L (3.5-5.1); Sodium 136 mmol/L (135-145); eGFR > 60.00
[2024-12-11] MEDS: NOVOLOG FLEXPEN-LOW RESISTANCE 1 UNITS SC ×3 (09:55→17:10)
[2024-12-11 10:11] LABS: Glycohemoglobin (HgbA1c) 7.1 % (4.0-5.6)
--- NOTE | 2024-12-11 10:29 | CM ---
Patient seen at bedside on . Patient states that she lives alone in a 2 story home with 4 steps to enter. Patient states that she is current with [facility] and she is planning to move to [place] with sisters soon. Patient PCP is Dr. Cifuentes and
she uses the [facility] in [place] for pharmacy needs. Patient does not drive and has friends to assist. Patient reviewed OBS form and completed form placed on chart. Patient plan is for discharge home with VN; [facility] and transition with sister to
[place] when everything is ready. CM will continue to follow for discharge planning needs.
Plan; home with VN: [facility], friends to transport.
[2024-12-11 12:04] LABS: Glucose - Point of Care 180 mg/dl (70-99)
--- NOTE | 2024-12-11 12:23 | W.PN.HOSP.TC ---
Today's Communication/Plan
-
MRI brain w/o contrast
check b12/folate/covid
pt/ot evaluation
Assessment / Plan
Assessment / Plan
1. Mechanical fall
Left-sided weakness
- Patient had reported left facial droop which resolved. Physical therapy also noted some left-sided weakness and left tongue deviation
- CT head did not show any acute stroke
- MRI brain without contrast ordered
- Check COVID/B12/folate. TSH within normal limit
- Patient may require short stay of rehab.
2. Depression/anxiety
- Maintained on home dose of citalopram
3. Insulin-dependent diabetes mellitus
- Dose of long-acting insulin unclear, A1c of 7.2
- Maintained on insulin sliding scale with Lantus 15 units at bedtime
4. Essential hypertension
- Continue home dose of lisinopril. Procardia on hold
5. Hypothyroidism
- Maintained on levothyroxine
DVT OPPX - scd
Full code
Total time spent : 53 mins
Anticipated Discharge: Within 24 hours
Subjective/Interval History
-
Date of Service: December 11, 2024
Resting comfortably in bed
Not voicing any complaints
Objective Data
-
Labs:
Laboratory Results
12/11/24
07:29
WBC 7.5
Hgb 12.0
Hct 35.8 L
Plt Count 190
Sodium 136
Potassium 4.1
Chloride 107
Carbon Dioxide 24
BUN 10
Creatinine 0.6
Glucose 137 H
Calcium 9.2
Vital Signs:
Vital Signs
Temp Pulse Resp BP Pulse Ox
98 F 51 16 157/66 96
12/11/24 07:34 12/11/24 07:34 12/11/24 07:34 12/11/24 07:34 12/11/24 07:34
I&O
12/10/24 12/11/24 12/12/24
06:59 06:59 06:59
Intake Total 960 / 960
Balance 960 / 960
Review of Systems
-
Respiratory: Reports No Symptoms
Cardiac: Reports No Symptoms
Abdomen/GI: Reports No Symptoms
Physical Exam
-
General: Negative Appears in Distress
HEENT: Negative Oxygen
Neuro: Awake, Alert and Oriented
[2024-12-11 13:34] LABS: Folate 4.0 ng/ml (2.76-20); Vitamin B12 274 pg/ml (239-931)
[2024-12-11 17:02] LABS: Glucose - Point of Care 186 mg/dl (70-99)
[2024-12-11] MEDS: LOVENOX 40 MG SC (17:10)
[2024-12-11 21:55] LABS: Glucose - Point of Care 150 mg/dl (70-99)
[2024-12-11 22:27] LABS: COVID-19 Antigen Negative (Negative)
[2024-12-11] MEDS: LANTUS 0.15 UNITS SC (22:31)
[2024-12-12] MEDS: SYNTHROID 125 MCG PO (06:36)
[2024-12-12] MEDS: NOVOLOG FLEXPEN-LOW RESISTANCE SC (07:47)
[2024-12-12] MEDS: ASPIR LOW (ENTERIC COATED) 81 MG PO (07:48)
[2024-12-12] MEDS: CRESTOR 40 MG PO (07:48)
[2024-12-12] MEDS: ZESTRIL 20 MG PO (07:48)
[2024-12-12 07:52] LABS: Glucose - Point of Care 134 mg/dl (70-99)
[2024-12-12 08:05] VITALS: BP 153/69
[2024-12-12] MEDS: NSS IV (09:55)
[2024-12-12 12:05] LABS: Glucose - Point of Care 176 mg/dl (70-99)
[2024-12-12] MEDS: NOVOLOG FLEXPEN-LOW RESISTANCE 1 UNITS SC ×2 (12:24→17:12)
--- NOTE | 2024-12-12 12:38 | CM ---
PT/OT rec SNF - discussed with patient and she is agreeable
[email or web address] care compare Information given to patient
referrals to [facility], [facility] entered in [facility]
Will need to obtain insurance auth from [facility]
PLAN: SNF, pending acceptance/bed availability when stable, Will need ins auth
--- NOTE | 2024-12-12 14:31 | W.PN.HOSP.TC ---
Today's Communication/Plan
-
f/u MR brain
discharge planning for snf rehab
Assessment / Plan
Assessment / Plan
1. Mechanical fall
Left-sided weakness
- Patient had reported left facial droop which resolved. Physical therapy also noted some left-sided weakness and left tongue deviation
- CT head did not show any acute stroke
- MRI brain without contrast ordered and pending
- COVID/b12/folate wnl. TSH within normal limit
- Patient may require short stay of rehab.
2. Depression/anxiety
- Maintained on home dose of citalopram
3. Insulin-dependent diabetes mellitus
- Dose of long-acting insulin unclear, A1c of 7.2
- Maintained on insulin sliding scale with Lantus 15 units at bedtime
4. Essential hypertension
- Continue home dose of lisinopril. resumed back procardia xl
5. Hypothyroidism
- Maintained on levothyroxine
DVT OPPX - scd
Full code
Anticipated Discharge: Within 24 hours
Subjective/Interval History
-
Date of Service: December 12, 2024
no complains overnight
Objective Data
-
Vital Signs:
Vital Signs
Temp Pulse Resp BP Pulse Ox
97.9 F 46 14 153/69 96
12/12/24 08:05 12/12/24 08:05 12/12/24 08:05 12/12/24 08:05 12/12/24 08:05
I&O
12/11/24 12/12/24 12/13/24
06:59 06:59 06:59
Intake Total 960 / 960 1140 / 1140
Balance 960 / 960 1140 / 1140
Review of Systems
-
Respiratory: Reports No Symptoms
Cardiac: Reports No Symptoms
Abdomen/GI: Reports No Symptoms
Physical Exam
-
General: Negative Appears in Distress
HEENT: Negative Oxygen
Neuro: Awake, Alert and Oriented
[2024-12-12 15:33] VITALS: BP 138/58
[2024-12-12 16:42] LABS: Glucose - Point of Care 189 mg/dl (70-99)
[2024-12-12] MEDS: LOVENOX 40 MG SC (17:13)
[2024-12-12 21:48] LABS: Glucose - Point of Care 146 mg/dl (70-99)
[2024-12-12] MEDS: LANTUS 0.15 UNITS SC (22:26)
[2024-12-12 23:00] VITALS: BP 155/65
[2024-12-13] MEDS: SYNTHROID 125 MCG PO (06:15)
[2024-12-13] MEDS: CRESTOR 40 MG PO (07:45)
[2024-12-13] MEDS: ASPIR LOW (ENTERIC COATED) 81 MG PO (07:45)
[2024-12-13] MEDS: ZESTRIL 20 MG PO (07:46)
[2024-12-13 07:59] VITALS: BP 160/62
[2024-12-13] MEDS: NOVOLOG FLEXPEN-LOW RESISTANCE SC ×2 (08:00→17:33)
[2024-12-13 08:02] LABS: Glucose - Point of Care 122 mg/dl (70-99)
[2024-12-13 11:41] LABS: Glucose - Point of Care 177 mg/dl (70-99)
--- NOTE | 2024-12-13 11:50 | W.PN.HOSP.TC ---
Today's Communication/Plan
-
Await MRI brain report to rule out any subacute stroke
Continue PT OT
Dispo planning
Assessment / Plan
Assessment / Plan
1. Mechanical fall
Left-sided weakness
- Patient had reported left facial droop which resolved. Physical therapy also noted some left-sided weakness and left tongue deviation
- CT head did not show any acute stroke
- MRI brain without contrast ordered and pending
- COVID/b12/folate wnl. TSH within normal limit
- Patient may require short stay of rehab.
2. Depression/anxiety
- Maintained on home dose of citalopram
3. Insulin-dependent diabetes mellitus
- Dose of long-acting insulin unclear, A1c of 7.2
- Maintained on insulin sliding scale with Lantus 15 units at bedtime
4. Essential hypertension
- Continue home dose of lisinopril. resumed back procardia xl
5. Hypothyroidism
- Maintained on levothyroxine
DVT OPPX - scd
Full code
Anticipated Discharge: Within 24 hours
Subjective/Interval History
-
Date of Service: December 13, 2024
Denies of having any issues overnight
Remains weak lethargic
Objective Data
-
Vital Signs:
Vital Signs
Temp Pulse Resp BP Pulse Ox
98.3 F 49 16 160/62 95
12/13/24 07:59 12/13/24 07:59 12/13/24 07:59 12/13/24 07:59 12/13/24 07:59
I&O
12/12/24 12/13/24 12/14/24
06:59 06:59 06:59
Intake Total 1140 / 1140 1200 / 1200
Balance 1140 / 1140 1200 / 1200
Review of Systems
-
Respiratory: Reports No Symptoms
Cardiac: Reports No Symptoms
Abdomen/GI: Reports No Symptoms
Physical Exam
-
General: Negative Appears in Distress
HEENT: Negative Oxygen
Neuro: Awake, Alert and Oriented
[2024-12-13] MEDS: NOVOLOG FLEXPEN-LOW RESISTANCE 1 UNITS SC (14:05)
[2024-12-13] MEDS: PROCARDIA XL (EXTENDED RELEASE) 30 MG PO (14:06)
[2024-12-13 15:11] VITALS: BP 157/61
[2024-12-13 16:44] VITALS: BP 157/61; PULSE 50; O2SAT 96
[2024-12-13 17:17] LABS: Glucose - Point of Care 145 mg/dl (70-99)
[2024-12-13] MEDS: LOVENOX 40 MG SC (17:34)
[2024-12-13 21:38] LABS: Glucose - Point of Care 181 mg/dl (70-99)
[2024-12-13] MEDS: LANTUS 0.15 UNITS SC (22:46)
[2024-12-13 23:57] VITALS: BP 145/63
[2024-12-14] MEDS: SYNTHROID 125 MCG PO (05:27)
[2024-12-14 07:00] VITALS: BP 123/52
[2024-12-14 08:20] LABS: Glucose - Point of Care 82 mg/dl (70-99)
[2024-12-14] MEDS: NOVOLOG FLEXPEN-LOW RESISTANCE SC ×2 (08:20→16:54)
[2024-12-14] MEDS: PROCARDIA XL (EXTENDED RELEASE) 30 MG PO (08:28)
[2024-12-14] MEDS: ASPIR LOW (ENTERIC COATED) 81 MG PO (08:28)
[2024-12-14] MEDS: CRESTOR 40 MG PO (08:29)
[2024-12-14] MEDS: ZESTRIL 20 MG PO (08:29)
--- NOTE | 2024-12-14 09:09 | CON.NEURO4 ---
Consultation - Neurology 4
-
CONSULTING PHYSICIAN: Anthony Higgins MD
REFERRING PHYSICIAN: Salvador Salinas MD
DICTATED BY: Anthony Higgins MD
DATE/TIME OF REQUEST: 12/14/2024
DATE/TIME OF CONSULTATION: 12/14/2024
Reason for Consultation: Weakness
Assessment and Plan:
The patient is a 69 years old female with a past medical history of CAD, CABG, UT, hypertension, hypercholesterolemia, IDDM and stroke, presented to the ER by EMS for increasing weakness in the left arm and left leg along with multiple falls. The
patient says that the left-sided weakness started about a month ago. MRI of the brain was done that showed a large acute and subacute infarction in the right middle cerebral artery territory.
CTA head/neck shows complete occlusion of the right internal carotid artery and 50 to 70% diameter stenosis of the proximal left internal carotid artery.
The patient had right hemispheric stroke secondary occlusion of the right ICA.
History of Present Illness:
The patient is a 68 years old female with a past medical history of CAD, CABG, UT, hypertension, hypercholesterolemia, IDDM and stroke, presented to the ER by EMS for increasing weakness in the left arm and left leg along with multiple falls. The
patient says that the left-sided weakness started about a month ago. MRI of the brain was done that showed a large acute and subacute infarction in the right middle cerebral artery territory.
Past Medical History: As given above in the history of present illness.
Review of Symptoms:
The patient denies headache, dizziness, chest pain, shortness of breath, fever, chills, nausea and vomiting.
Neurologic Examination:
The patient is awake, alert and oriented x 3.She is able to follow commands and answer questions appropriately.
Speech is clear and there is no dysarthria.
The cranial nerves II to XII are grossly intact.
The motor strength is grossly 4/5 in the left upper and lower extremities and is grossly 5/5 in the right upper and lower extremities.
The sensations are intact bilaterally.
The nlohfa-[id number] and aveb-gv-nsyh test did not show limb ataxia.
Total Time Spent with Patient (in minutes): 40
Medications
-
Active Medications
Generic Name Dose Route Start Last Admin
Trade Name Freq PRN Reason Stop Dose Admin
Acetaminophen 650 mg 12/11/24 01:40
Acetaminophen 325 Mg Tablet PO 01/08/25 01:39
Q4HPRN PRN
mild pain/BEACH/temp> 100.4F
Aspirin 81 mg 12/11/24 08:00 12/14/24 08:28
Aspirin 81 Mg (Enteric Coated) Tablet PO 01/08/25 07:59 81 mg
DAILY CHAVEZ Administration
Bisacodyl 10 mg 12/11/24 01:40
Bisacodyl 10 Mg Rectal Suppository RECTAL 01/08/25 01:39
[id number] PRN
constipation
Dextrose 12.5 grams 12/11/24 01:40
Dextrose 50% (0.5 Grams/Ml) 50 Ml Syringe IV 01/08/25 01:39
[id number] PRN
hypoglycemia
Protocol
Enoxaparin Sodium 40 mg 12/11/24 18:00 12/13/24 17:34
Enoxaparin Sodium 40 Mg/0.4 Ml Syringe SC 01/08/25 17:59 40 mg
QPM CHAVEZ Administration
Glucagon 1 mg 12/11/24 01:40
Glucagon 1 Mg Vial IM 01/08/25 01:39
PRN PRN
hypoglycemia
Protocol
Insulin Glargine 15 units/ 0.15 mls @ 0 mls/hr 12/11/24 22:00 12/13/24 22:46
Device SC 01/08/25 21:59 0.15 mls
HS CHAVEZ Administration
As Directed
Insulin Aspart 0 units 12/11/24 07:30 12/14/24 16:54
Insulin Aspart Low Resistance 300 Units/3 Ml Pen.Injctr SC 01/08/25 07:29 Not Given
AC CHAVEZ
Protocol
Levothyroxine Sodium 125 mcg 12/11/24 06:00 12/14/24 05:27
Levothyroxine 125 Mcg Tablet PO 01/08/25 05:59 125 mcg
DAILY @ 0600 CHAVEZ Administration
Lisinopril 20 mg 12/11/24 08:00 12/14/24 08:29
Lisinopril 20 Mg Tablet PO 01/08/25 07:59 20 mg
DAILY CHAVEZ Administration
Nifedipine 30 mg 12/13/24 12:00 12/14/24 08:28
Nifedipine 30 Mg Extended Release Tablet PO 01/10/25 11:59 30 mg
DAILY CHAVEZ Administration
Polyethylene Glycol 17 grams 12/11/24 01:40
Polyethylene Glycol Powder 17 Grams Packet PO 01/08/25 01:39
DAILYPRN PRN
constipation
Rosuvastatin Calcium 40 mg 12/11/24 08:00 12/14/24 08:29
Rosuvastatin (Crestor) 20 Mg Tablet PO 01/08/25 07:59 40 mg
DAILY CHAVEZ Administration
Senna/Docusate Sodium 1 tablet 12/11/24 01:40
Docusate W/Senna (Felipa-Colace) Tablet PO 01/08/25 01:39
BIDPRN PRN
constipation
Home Medications
�Medication �Instructions �Recorded
insulin glargine 100 unit/mL (3 50 units SC DAILY 08/15/10
mL) subcutaneous pen (Lantus
Solostar U-100 Insulin)
aspirin 81 mg tablet,delayed 81 mg PO DAILY 11/08/15
release
citalopram 10 mg tablet 10 mg PO DAILY 11/08/15
ibuprofen 200 mg tablet 400 mg PO Q4HPRN PRN pain 11/08/15
levothyroxine 125 mcg tablet 125 mcg PO DAILY 11/08/15
rosuvastatin 40 mg tablet (Crestor) 40 mg PO DAILY 11/08/15
acetaminophen 325 mg tablet 650 mg (2 x 325 mg) PO Q4HPRN PRN 11/10/15
mild pain/BEACH/temp> 100.4F ##0
lisinopril 20 mg tablet 20 mg PO DAILY ##30 11/10/15
methylprednisolone 4 mg tablets in 4 tab PO . DIRECT ##1 11/10/15
a dose pack (Medrol (Donnie))
nifedipine 30 mg tablet,extended 30 mg PO DAILY ##30 11/10/15
release
Vital Signs and Labs
-
Vital Signs and Labs:
Vital Signs
Temp Pulse Resp BP Pulse Ox
36.7 C 57 18 126/55 93
12/14/24 16:00 12/14/24 16:00 12/14/24 16:00 12/14/24 16:00 12/14/24 16:00
Lab Results
12/14/24 09:08
12/14/24 09:08
Sodium 136 mmol/L (135-145) 12/14/24 09:08
Potassium 4.1 mmol/L (3.5-5.1) 12/14/24 09:08
BUN 8 mg/dl (7-17) 12/14/24 09:08
Glucose 165 mg/dl (70-99) H 12/14/24 09:08
Calcium 9.3 mg/dl (8.4-10.2) 12/14/24 09:08
Vitamin B12 274 pg/ml (422-931) 12/11/24 07:29
[2024-12-14 09:25] LABS: Hematocrit 39.7 % (37.0-47.0); Hemoglobin 13.2 g/dL (12.0-16.0); Mean Corp Hgb Conc. 33.2 g/dL (33.0-37.0); Mean Corpuscular Volume 84.3 fL (81.0-99.0); Platelet Count 211 10^3/uL (130-400); Red Cell Dist. Width 14.0 % (11.5-14.5)
[2024-12-14 09:40] LABS: Blood Urea Nitrogen 8 mg/dl (7-17); Calcium 9.3 mg/dl (8.4-10.2); Carbon Dioxide 24 mmol/L (22-30); Chloride 106 mmol/L (98-107); Estimated Creatinine Clearance 95 ml/min; Glucose 165 mg/dl (70-99); Potassium 4.1 mmol/L (3.5-5.1); Sodium 136 mmol/L (135-145); eGFR > 60.00
[2024-12-14 11:00] VITALS: BP 128/55; BP 132/58
--- NOTE | 2024-12-14 11:20 | W.PN.HOSP.TC ---
Today's Communication/Plan
-
see note
Assessment / Plan
Assessment / Plan
MRI brain
1. LARGE ACUTE and SUBACUTE INFARCTION in the RIGHT FRONTAL and PARIETAL LOBES involving both cortical fajardo matter and white matter (RIGHT MIDDLE CEREBRAL ARTERY TERRITORY).
2. Small chronic transcortical infarct in the posterior superior right parietal lobe.
3. Occlusion or severe stenosis in the RIGHT INTERNAL CAROTID ARTERY resulting in markedly decreased blood flow. Associated decreased blood flow in the right middle cerebral artery.
4. 2.0 cm chronic periventricular white matter infarct in the left frontal lobe.
5. 6 mm chronic lacunar infarct in the left thalamus.
6. Moderate periventricular white matter leukoaraiosis.
7. Mild diffuse cerebral and cerebellar volume loss.
8. Tiny chronic intraparenchymal hemorrhage in the right basal ganglia.
1. Acute subacute Right sided CVA
h/o of old stroke
- Noted to have left upper and lower extremity by PT
- Have h/o of previous stroke
- MR brain results as above
- Lipid profile ordered
- on ASA/statin, continued
- Neuro evaluation requested for further recommendation on medication change
2. Right carotid occlusion
- Visible on MR brain, dedicated CTA h&n ordered
- no afib h/o , monitor on telemetry
3. Mechanical fall
- PT evaluated and will require rehab placement
4. Depression/anxiety
- Maintained on home dose of citalopram
5. Insulin-dependent diabetes mellitus
- Dose of long-acting insulin unclear, A1c of 7.1
- Maintained on insulin sliding scale with Lantus 15 units at bedtime
6. Essential hypertension
- Continue home dose of lisinopril/procardia
7. Hypothyroidism
- Maintained on levothyroxine
DVT OPPX - scd
Full code
Care plan discussed with neurology
Transfer to telemetry
Level of care changed to inpatient level
Total time spent : 54 mins
Anticipated Discharge: 24 - 48 hours
Subjective/Interval History
-
Date of Service: December 14, 2024
Denies of issues overnight
Objective Data
-
Labs:
Laboratory Results
12/14/24
09:08
WBC 8.1
Hgb 13.2
Hct 39.7
Plt Count 211
Sodium 136
Potassium 4.1
Chloride 106
Carbon Dioxide 24
BUN 8
Creatinine 0.6
Glucose 165 H
Calcium 9.3
Vital Signs:
Vital Signs
Temp Pulse Resp BP Pulse Ox
98.2 F 51 17 123/52 97
12/14/24 07:00 12/14/24 07:00 12/14/24 07:00 12/14/24 07:00 12/14/24 07:00
I&O
12/13/24 12/14/24 12/15/24
06:59 06:59 06:59
Intake Total 1200 / 1200 1200 / 1200
Balance 1200 / 1200 1200 / 1200
Review of Systems
-
Respiratory: Reports No Symptoms
Cardiac: Reports No Symptoms
Abdomen/GI: Reports No Symptoms
Physical Exam
-
General: Negative Appears in Distress
HEENT: Negative Oxygen
Neuro: Awake, Alert, Oriented and Other (LUE and LLE weakness)
[2024-12-14 11:42] LABS: Glucose - Point of Care 214 mg/dl (70-99)
[2024-12-14] MEDS: NOVOLOG FLEXPEN-LOW RESISTANCE 2 UNITS SC (13:42)
[2024-12-14 14:22] VITALS: PULSE 65; O2SAT 96
[2024-12-14 16:00] VITALS: BP 126/55
[2024-12-14 16:42] LABS: Glucose - Point of Care 115 mg/dl (70-99)
[2024-12-14] MEDS: LOVENOX 40 MG SC (18:39)
[2024-12-14 19:00] VITALS: BP 145/67
[2024-12-14 22:03] LABS: Glucose - Point of Care 144 mg/dl (70-99)
[2024-12-14] MEDS: LANTUS 0.15 UNITS SC (22:52)
[2024-12-14 23:00] VITALS: BP 132/58
[2024-12-15 03:00] VITALS: BP 122/55
[2024-12-15] MEDS: SYNTHROID 125 MCG PO (05:48)
[2024-12-15 07:26] VITALS: BP 138/54
[2024-12-15 07:40] LABS: Glucose - Point of Care 145 mg/dl (70-99)
[2024-12-15] MEDS: NOVOLOG FLEXPEN-LOW RESISTANCE SC ×2 (07:56→16:42)
[2024-12-15] MEDS: ZESTRIL 20 MG PO (07:58)
[2024-12-15] MEDS: ASPIR LOW (ENTERIC COATED) 81 MG PO (07:58)
[2024-12-15] MEDS: PROCARDIA XL (EXTENDED RELEASE) 30 MG PO (07:58)
[2024-12-15] MEDS: CRESTOR 40 MG PO (07:58)
[2024-12-15 08:03] LABS: HDL Cholesterol 51 mg/dl; LDL Cholesterol, Calculated 66 mg/dl; Very Low Density Lipoprotein 59 mg/dl (0-30)
--- NOTE | 2024-12-15 09:02 | W.PN.NEURO.1 ---
Today's Communication / Plan
-
Appreciate vascular surgery evaluation of left internal carotid artery stenosis for the possibility of procedural remediation. Timing of the procedure may be immediate as the patient has had both acute and subacute strokes and is greater than 48
hours since the last onset of symptoms
Provide dual antiplatelet therapy with eventual replacement with the use of clopidogrel as it is unclear that aspirin has been significantly protective for the patient; starting clopidogrel now
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
Provide medical educational materials
Goal of normoglycemia
Rehabilitation evaluations and treatment
Lifelong vitamin B12 replacement, initiated now
Goal of mild hypertension due to probable carotid stenosis and then normotension after surgical remediation, if same takes place
Neuro Assessment/Plan
Assessment
Recurrent episodes of stroke most likely beginning in June 2024 and having a stuttering course associated with episodic limb weakness and falling despite routine use of aspirin.
Plan
Appreciate vascular surgery evaluation of left internal carotid artery stenosis for the possibility of procedural remediation. Timing of the procedure may be immediate as the patient has had both acute and subacute strokes and is greater than 48
hours since the last onset of symptoms
Provide dual antiplatelet therapy with eventual replacement with the use of clopidogrel as it is unclear that aspirin has been significantly protective for the patient; starting clopidogrel now
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
Provide medical educational materials
Goal of normoglycemia
Rehabilitation evaluations and treatment
Lifelong vitamin B12 replacement, initiated now
Goal of mild hypertension due to probable carotid stenosis and then normotension after surgical remediation, if same takes place
Will follow peripherally
Subjective/Objective
Subjective Data
Date of Service: December 15, 2024
Objective Data
Vital Signs
Temp Pulse Resp BP Pulse Ox
36.9 C 64 18 138/54 98
12/15/24 07:26 12/15/24 07:58 12/15/24 07:26 12/15/24 07:58 12/15/24 07:26
Lab Results
12/14/24 09:08
12/14/24 09:08
Sodium 136 mmol/L (135-145) 12/14/24 09:08
Potassium 4.1 mmol/L (3.5-5.1) 12/14/24 09:08
BUN 8 mg/dl (7-17) 12/14/24 09:08
Glucose 165 mg/dl (70-99) H 12/14/24 09:08
Calcium 9.3 mg/dl (8.4-10.2) 12/14/24 09:08
LDL Cholesterol, Calc 66 mg/dl 12/15/24 07:11
Vitamin B12 274 pg/ml (239-931) 12/11/24 07:29
Patient Allergies
latex (Latex) Allergy (Mild, Verified 12/10/24 16:22)
rash- slight
Past History
Past History
ED Past Medical History: CAD, CVA, HTN, Hypercholesterolemia, Hypothyroidism, Other (Thyroid storm, diabetes) and Other (Previous stroke, diabetes, CABG, status post TN, hypertension, hypothyroidism)
ED Past Surgical History: Other (cabg)
Social History
Tobacco: Non-smoker
Alcohol: None
Employment: Employed
Family History
Family History: Other (Mother with Crohn's father with TN and stroke)
Medications
-
Medications:
Generic Name Dose Route Start Last Admin
Trade Name Freq PRN Reason Stop Dose Admin
Acetaminophen 650 mg 12/11/24 01:40
Acetaminophen 325 Mg Tablet PO 01/08/25 01:39
Q4HPRN PRN
mild pain/BEACH/temp> 100.4F
Aspirin 81 mg 12/11/24 08:00 12/15/24 07:58
Aspirin 81 Mg (Enteric Coated) Tablet PO 01/08/25 07:59 81 mg
DAILY CHAVEZ Administration
Bisacodyl 10 mg 12/11/24 01:40
Bisacodyl 10 Mg Rectal Suppository RECTAL 01/08/25 01:39
[id number] PRN
constipation
Cyanocobalamin 1,000 mcg 12/15/24 09:00
Cyanocobalamin (Vitamin B-12) 500 Mcg Tablet PO 01/12/25 08:59
DAILY CHAVEZ
Dextrose 12.5 grams 12/11/24 01:40
Dextrose 50% (0.5 Grams/Ml) 50 Ml Syringe IV 01/08/25 01:39
[id number] PRN
hypoglycemia
Protocol
Enoxaparin Sodium 40 mg 12/11/24 18:00 12/14/24 18:39
Enoxaparin Sodium 40 Mg/0.4 Ml Syringe SC 01/08/25 17:59 40 mg
QPM CHAVEZ Administration
Glucagon 1 mg 12/11/24 01:40
Glucagon 1 Mg Vial IM 01/08/25 01:39
PRN PRN
hypoglycemia
Protocol
Insulin Glargine 15 units/ 0.15 mls @ 0 mls/hr 12/11/24 22:00 12/14/24 22:52
Device SC 01/08/25 21:59 0.15 mls
HS CHAVEZ Administration
As Directed
Insulin Aspart 0 units 12/11/24 07:30 12/15/24 07:56
Insulin Aspart Low Resistance 300 Units/3 Ml Pen.Injctr SC 01/08/25 07:29 Not Given
AC CHAVEZ
Protocol
Levothyroxine Sodium 125 mcg 12/11/24 06:00 12/15/24 05:48
Levothyroxine 125 Mcg Tablet PO 01/08/25 05:59 125 mcg
DAILY @ 0600 CHAVEZ Administration
Lisinopril 20 mg 12/11/24 08:00 12/15/24 07:58
Lisinopril 20 Mg Tablet PO 01/08/25 07:59 20 mg
DAILY CHAVEZ Administration
Nifedipine 30 mg 12/13/24 12:00 12/15/24 07:58
Nifedipine 30 Mg Extended Release Tablet PO 01/10/25 11:59 30 mg
DAILY CHAVEZ Administration
Polyethylene Glycol 17 grams 12/11/24 01:40
Polyethylene Glycol Powder 17 Grams Packet PO 01/08/25 01:39
DAILYPRN PRN
constipation
Rosuvastatin Calcium 40 mg 12/11/24 08:00 12/15/24 07:58
Rosuvastatin (Crestor) 20 Mg Tablet PO 01/08/25 07:59 40 mg
DAILY CHAVEZ Administration
Senna/Docusate Sodium 1 tablet 12/11/24 01:40
Docusate W/Senna (Felipa-Colace) Tablet PO 01/08/25 01:39
BIDPRN PRN
constipation
[2024-12-15] MEDS: PLAVIX 75 MG PO (09:24)
[2024-12-15] MEDS: VITAMIN B-12 1000 MCG PO (09:24)
[2024-12-15 10:59] LABS: Glucose - Point of Care 188 mg/dl (70-99)
[2024-12-15] MEDS: NOVOLOG FLEXPEN-LOW RESISTANCE 1 UNITS SC (10:59)
[2024-12-15 11:14] VITALS: BP 129/72
--- NOTE | 2024-12-15 11:25 | CM ---
Addendum entered by Leida Cee 12/15/24 11:45:
will need to obtain ins auth once bed secured
Original Note:
patient seen at bedside
discussed acute rehab vs snf
carotid US ordered today
attended rounds today - req physiatry consult
MRI brain completed 12/13
PT eval 12/14 - Acute vs. SNF
entered referral in [facility] for [facility]
spoke with Jessica Hare at [facility]
PLAN: Acute rehab, await physiatry consult
--- NOTE | 2024-12-15 11:57 | CON.VAS ---
Addendum entered and electronically signed by Mikey Plummer III, MD 12/15/24 14:12:
This patient was seen and examined in collaboration with BLANCO Kendall. I agree with the history and physical exam as well as the assessment and plan. I have the following additions:
69-year-old female with multiple arterial disease risk factors
Prior left sided carotid stenting by interventional cardiology at [facility] in 2011 ([facility]a)
Prior CABG
Has not had regular carotid surveillance follow-up since that time
She also reports that she stopped going for cardiology followup because 'they just told me to keep taking my medication' and she didn't find that particularly beneficial
Now presents with left arm weakness.
She reports having symptoms since early November. It was her boyfriend who made her come to the ED last week when he was visiting her.
Cross-sectional imaging performed here personally reviewed by me. Centerline reconstructions performed.
Calcified plaque at the right carotid bifurcation and proximal right internal carotid artery. The proximal right internal carotid artery appears to be segmentally occluded with calcified plaque as does the more distal intracranial portion which is
also heavily calcified. The left carotid stent is patent with no significant in-stent restenosis.
On exam she is alert and oriented, no distress
Non toxic
Non labored breathing
Left arm is weaker than the right on exam
She has been having symptoms for approximately 1 month. She has severe cerebrovascular disease. Right internal carotid artery is occluded at the proximal aspect as well as the intracranial portion. Max/best medical therapy for arterial disease risk
factors. Right carotid likely occluded chronically based on symptom onset. Will plan to establish followup for carotid surveillance after she is discharged.
Signed:
Mikey Plummer III, MD
Vascular Surgery
[facility]
Original Note:
Consultation
Consultation Request
Date/Time Consultation Performed: 12/15/2024 1200
Requesting Provider: Hospitalist
Performing Provider: Brit Tejada AUTOMOTIVE COLLISION ESTIMATOR-C for Mikey Plummer III, MD
Reason for Consultation: Occluded Right Carotid
Medical History
-
Chief Complaint: Left-sided weakness and recent fall
History of Present Illness:
This is a right handed 69-year-old female with significant past medical history for coronary artery disease, CABG, HI, hypertension, hypercholesterolemia, hypothyroidism, thyroid storm, diabetes, stroke, and left carotid stenosis who presented to
[facility] on 12/10/2024 with reports of recent fall and left-sided weakness particularly arm. Patient endorses that on 11/12/2024 she experienced a fall out of her armchair, although she is unsure what precipitated her fall, which resulted
in her laying on the floor for roughly 5 hours with the inability to get herself up and left arm was pinned underneath her for this timeframe. She was seen in our ED with suspected nerve injury and discharged. She endorses since this fall she has
been experiencing intermittent waxing and waning of difficulty with balance and left-sided weakness again particularly left arm. She also endorses falling on 11/16/2024 due to ambulatory dysfunction. She does endorse a history of carotid disease
with left carotid stenosis and subsequent left carotid stent [place] [address] Santosh Leon. She states she has never seen a vascular surgeon, and was never told to follow-up with repeat carotid duplexes. She states she was seeing a
poultry veterinarian but after a few visits felt it was not necessary and now only follows with her PCP Dr. Jeremiah Cifuentes. Currently she endorses that she has no left leg weakness but still has waxing and waning left upper extremity weakness particularly
with hand grasp.
Past Medical History
Past Medical History: CAD, CVA, HTN, Hypercholesterolemia, Hypothyroidism, IDDM, HI and Other (Carotid stenosis)
Past Surgical History: Cardiac (CABG in [address] Kohler)
Social History
Tobacco: Former Smoker
Alcohol: None
Personal: Single
Living: Alone
Allergies / Home Medications
Allergy/AdvReac Type Severity Reaction Status Date / Time
latex (Latex) Allergy Mild rash- Verified 12/10/24 16:22
slight
�Medication �Instructions �Recorded �Confirmed �Type
insulin glargine 100 unit/mL (3 50 units SC DAILY 08/15/10 11/08/15 History
mL) subcutaneous pen (Lantus
Solostar U-100 Insulin)
aspirin 81 mg tablet,delayed 81 mg PO DAILY 11/08/15 11/08/15 History
release
citalopram 10 mg tablet 10 mg PO DAILY 11/08/15 11/08/15 History
ibuprofen 200 mg tablet 400 mg PO Q4HPRN PRN pain 11/08/15 11/08/15 History
levothyroxine 125 mcg tablet 125 mcg PO DAILY 11/08/15 11/08/15 History
rosuvastatin 40 mg tablet (Crestor) 40 mg PO DAILY 11/08/15 11/08/15 History
acetaminophen 325 mg tablet 650 mg (2 x 325 mg) PO Q4HPRN PRN 11/10/15 Rx
mild pain/BEACH/temp> 100.4F ##0
lisinopril 20 mg tablet 20 mg PO DAILY ##30 11/10/15 Rx
methylprednisolone 4 mg tablets in 4 tab PO . DIRECT ##1 11/10/15 Rx
a dose pack (Medrol (Donnie))
nifedipine 30 mg tablet,extended 30 mg PO DAILY ##30 11/10/15 Rx
release
Review of Systems
-
History Source: Patient
Constitutional: Reports No Symptoms
EENT: Reports No Symptoms
Respiratory: Reports No Symptoms
Cardiac: Reports No Symptoms
Abdomen/GI: Reports No Symptoms
: Reports No Symptoms
Musculoskeletal: Reports No Symptoms
Skin: Reports No Symptoms
Neurological: Reports Other (Left upper extremity weakness, ambulatory dysfunction, recent multiple falls)
Endocrine: Reports No Symptoms
Physical Exam
Vital Signs
Temp Pulse Resp BP Pulse Ox
98.3 F 66 16 129/72 97
12/15/24 11:14 12/15/24 11:14 12/15/24 11:14 12/15/24 11:14 12/15/24 11:14
Lab Results
12/14/24 09:08
12/14/24 09:08
Physical Exam
General: No Apparent Distress
HEENT: Normocephalic, Anicteric and Atraumatic
Respiratory: Non Labored Respirations
Cardiac: Negative JVD
GI: Non Distended
Musculoskeletal: No Edema
Skin: Warm and Dry
Neuro: AO x 3; Negative No Motor Deficits (Left upper extremity weakness particularly with hand grasp)
Assessment / Plan
-
Assessment: 69-year-old female with significant past medical history for carotid disease, presents with large acute and subacute infarct of the right frontal and parietal lobes with right carotid occlusion on head and neck CTA.
Plan:
Given right carotid artery is occluded would not recommend surgical intervention, optimize medical management with statin and antiplatelet medication.
Patient should continue to follow for left carotid stenosis within carotid stent, patient can see us in the outpatient setting in roughly 6 months. Follow-up and ultrasound appointments made and placed in discharge instructions.
Patient seen and examined at bedside with Dr. Mikey Plummer III, who agrees with above plan.
--- NOTE | 2024-12-15 14:00 | W.PN.HOSP.TC ---
Today's Communication/Plan
-
DAPT
Statin
Vascular consulted - appreciate recs
PM&R consulted
Assessment / Plan
Assessment / Plan
MRI brain
1. LARGE ACUTE and SUBACUTE INFARCTION in the RIGHT FRONTAL and PARIETAL LOBES involving both cortical fajardo matter and white matter (RIGHT MIDDLE CEREBRAL ARTERY TERRITORY).
2. Small chronic transcortical infarct in the posterior superior right parietal lobe.
3. Occlusion or severe stenosis in the RIGHT INTERNAL CAROTID ARTERY resulting in markedly decreased blood flow. Associated decreased blood flow in the right middle cerebral artery.
4. 2.0 cm chronic periventricular white matter infarct in the left frontal lobe.
5. 6 mm chronic lacunar infarct in the left thalamus.
6. Moderate periventricular white matter leukoaraiosis.
7. Mild diffuse cerebral and cerebellar volume loss.
8. Tiny chronic intraparenchymal hemorrhage in the right basal ganglia.
1. Acute subacute Right sided CVA
h/o of old stroke
- Noted to have left upper and lower extremity by PT
- Have h/o of previous stroke
- MR brain results as above
- Lipid profile ordered
- dual antiplatelet therapy with eventual replacement with the use of clopidogrel as it is unclear that aspirin has been significantly protective for the patient; starting clopidogrel now
- statin, continued
- Neuro evaluation requested for further recommendation on medication change
- Lifelong vitamin B12 replacement, initiated now
-Consult PM&R
2. Right carotid occlusion
- Visible on MR brain, dedicated CTA h&n ordered
- no afib h/o , monitor on telemetry
� High-grade stenosis of the right internal carotid artery
� Vascular consulted
� Given right carotid artery is occluded, recommend medical optimization with statin antiplatelet medication rather than surgical intervention
� Follow-up left carotid stenosis with carotid stent outpatient in roughly 6 months
� Follow-up outpatient ultrasound with vascular
3. Mechanical fall
- PT evaluated and will require rehab placement
4. Depression/anxiety
- Maintained on home dose of citalopram
5. Insulin-dependent diabetes mellitus
- Dose of long-acting insulin unclear, A1c of 7.1
- Maintained on insulin sliding scale with Lantus 15 units at bedtime
6. Essential hypertension
- Continue home dose of lisinopril/procardia
7. Hypothyroidism
- Maintained on levothyroxine
DVT OPPX - scd
Full code
Care plan discussed with neurology
Transfer to telemetry
Level of care changed to inpatient level
Total time spent on today's encounter was 51 minutes which included time spent in counseling the patient/family regarding diagnosis and treatment plan as listed above, goals of care, and symptom management. Case was discussed with nursing staff,
specialists, and care coordinators/case management. All labs and imaging personally reviewed by me. Remainder the time spent in detailed review of previous records, lab data, imaging, and other medical provider documentation.
Anticipated Discharge: Within 24 hours
Subjective/Interval History
-
Date of Service: December 15, 2024
No acute events overnight
Objective Data
-
Vital Signs:
Vital Signs
Temp Pulse Resp BP Pulse Ox
98.3 F 66 16 129/72 97
12/15/24 11:14 12/15/24 11:14 12/15/24 11:14 12/15/24 11:14 12/15/24 11:14
I&O
12/14/24 12/15/24 12/16/24
06:59 06:59 06:59
Intake Total 1200 / 1200 1320 / 1320
Balance 1200 / 1200 1320 / 1320
Review of Systems
-
Respiratory: Reports No Symptoms
Cardiac: Reports No Symptoms
Abdomen/GI: Reports No Symptoms
Physical Exam
-
General: Negative Appears in Distress
HEENT: Negative Oxygen
Neuro: Awake, Alert, Oriented and Other (LUE and LLE weakness)
Data Reviewed
-
CT Scan: Report Reviewed by me
Ultrasound: Report Reviewed by me
MRI: Report Reviewed by me
Labs: Labs Reviewed by me
[2024-12-15 15:00] VITALS: BP 146/67
[2024-12-15 16:41] LABS: Glucose - Point of Care 147 mg/dl (70-99)
[2024-12-15] MEDS: LOVENOX 40 MG SC (16:59)
[2024-12-15 19:00] VITALS: BP 117/51
[2024-12-15 21:19] LABS: Glucose - Point of Care 230 mg/dl (70-99)
[2024-12-15] MEDS: LANTUS 0.15 UNITS SC (21:27)
[2024-12-15] MEDS: TYLENOL 650 MG PO (22:14)
[2024-12-15 23:00] VITALS: BP 119/47
[2024-12-16] VITALS (7 sets, daily range): BP systolic 119–138; BP diastolic 50–64; PULSE 67
[2024-12-16] MEDS: SYNTHROID 125 MCG PO (05:36)
[2024-12-16 07:41] LABS: Hematocrit 38.4 % (37.0-47.0); Hemoglobin 13.2 g/dL (12.0-16.0); Mean Corp Hgb Conc. 34.4 g/dL (33.0-37.0); Mean Corpuscular Volume 85.5 fL (81.0-99.0); Platelet Count 211 10^3/uL (130-400); Red Cell Dist. Width 14.1 % (11.5-14.5)
[2024-12-16] MEDS: CRESTOR 40 MG PO (07:49)
[2024-12-16] MEDS: ASPIR LOW (ENTERIC COATED) 81 MG PO (07:49)
[2024-12-16] MEDS: PLAVIX 75 MG PO (07:49)
[2024-12-16] MEDS: ZESTRIL 20 MG PO (07:49)
[2024-12-16 07:50] LABS: Glucose - Point of Care 124 mg/dl (70-99)
[2024-12-16] MEDS: VITAMIN B-12 1000 MCG PO (07:50)
[2024-12-16] MEDS: PROCARDIA XL (EXTENDED RELEASE) 30 MG PO (07:52)
[2024-12-16] MEDS: NOVOLOG FLEXPEN-LOW RESISTANCE SC ×2 (07:55→16:41)
[2024-12-16 08:01] LABS: ALT (SGPT) 27 U/L (0-35); AST (SGOT) 31 U/L (14-36); Albumin 3.8 g/dl (3.5-5.0); Alkaline Phosphatase 70 U/L (38-126); Blood Urea Nitrogen 11 mg/dl (7-17); Calcium 9.6 mg/dl (8.4-10.2); Carbon Dioxide 25 mmol/L (22-30); Chloride 107 mmol/L (98-107); Estimated Creatinine Clearance 95 ml/min; Glucose 134 mg/dl (70-99); Potassium 4.6 mmol/L (3.5-5.1); Sodium 139 mmol/L (135-145); Total Protein 6.8 g/dl (6.3-8.2); eGFR > 60.00
--- NOTE | 2024-12-16 09:30 | CM ---
Addendum entered by Leida Cee 12/16/24 11:22:
Physiatry consult ordered for Acute Rehab, pending
Spoke with Jessica Hare at [facility] -referral in [facility]
PLAN: Acute Rehab vs. SNF
Original Note:
chart reviewed
PT rec Acute Rehab
spoke with patient regarding insurance [employer] (3rd green party general administrator) which termed 12/09-patient stated to call Terrence Ugarte
spoke with Philly in admissions who spoke to Terrence Ugarte-she stated they are working on getting the new 3rd green party general administrator insurance member # & information.
discussed with Philly that plan was Acute rehab
PLAN: Acute rehab, awaiting new ins info
[2024-12-16 11:47] LABS: Glucose - Point of Care 176 mg/dl (70-99)
[2024-12-16] MEDS: NOVOLOG FLEXPEN-LOW RESISTANCE 1 UNITS SC (12:19)
--- NOTE | 2024-12-16 13:20 | W.PN.HOSP.TC ---
Today's Communication/Plan
-
Disposition efforts
DAPT
And statin
Assessment / Plan
Assessment / Plan
MRI brain
1. LARGE ACUTE and SUBACUTE INFARCTION in the RIGHT FRONTAL and PARIETAL LOBES involving both cortical fajardo matter and white matter (RIGHT MIDDLE CEREBRAL ARTERY TERRITORY).
2. Small chronic transcortical infarct in the posterior superior right parietal lobe.
3. Occlusion or severe stenosis in the RIGHT INTERNAL CAROTID ARTERY resulting in markedly decreased blood flow. Associated decreased blood flow in the right middle cerebral artery.
4. 2.0 cm chronic periventricular white matter infarct in the left frontal lobe.
5. 6 mm chronic lacunar infarct in the left thalamus.
6. Moderate periventricular white matter leukoaraiosis.
7. Mild diffuse cerebral and cerebellar volume loss.
8. Tiny chronic intraparenchymal hemorrhage in the right basal ganglia.
1. Acute subacute Right sided CVA
h/o of old stroke
- Noted to have left upper and lower extremity by PT
- Have h/o of previous stroke
- MR brain results as above
- Lipid profile ordered
- dual antiplatelet therapy with eventual replacement with the use of clopidogrel as it is unclear that aspirin has been significantly protective for the patient; starting clopidogrel now
- statin, continued
- Neuro evaluation requested for further recommendation on medication change
- Lifelong vitamin B12 replacement, initiated now
-Consult PM&R
2. Right carotid occlusion
- Visible on MR brain, dedicated CTA h&n ordered
- no afib h/o , monitor on telemetry
� High-grade stenosis of the right internal carotid artery
� Vascular consulted
� Given right carotid artery is occluded, recommend medical optimization with statin antiplatelet medication rather than surgical intervention
� Follow-up left carotid stenosis with carotid stent outpatient in roughly 6 months
� Follow-up outpatient ultrasound with vascular
3. Mechanical fall
- PT evaluated and will require rehab placement
4. Depression/anxiety
- Maintained on home dose of citalopram
5. Insulin-dependent diabetes mellitus
- Dose of long-acting insulin unclear, A1c of 7.1
- Maintained on insulin sliding scale with Lantus 15 units at bedtime
6. Essential hypertension
- Continue home dose of lisinopril/procardia
7. Hypothyroidism
- Maintained on levothyroxine
DVT OPPX - scd
Full code
Care plan discussed with neurology
Transfer to telemetry
Level of care changed to inpatient level
Anticipated Discharge: Within 24 hours
Subjective/Interval History
-
Date of Service: December 16, 2024
No acute events overnight, sitting in chair resting comfortably
Objective Data
-
Labs:
Laboratory Results
12/16/24
07:00
WBC 6.3
Hgb 13.2
Hct 38.4
Plt Count 211
Sodium 139
Potassium 4.6
Chloride 107
Carbon Dioxide 25
BUN 11
Creatinine 0.6
Glucose 134 H
Calcium 9.6
Total Bilirubin 0.7
AST 31
ALT 27
Alkaline Phosphatase 70
Vital Signs:
Vital Signs
Temp Pulse Resp BP Pulse Ox
97.3 F 58 20 121/56 96
12/16/24 10:50 12/16/24 10:50 12/16/24 07:58 12/16/24 10:50 12/16/24 10:50
I&O
12/15/24 12/16/24 12/17/24
06:59 06:59 06:59
Intake Total 1320 / 1320 2240 / 2240
Balance 1320 / 1320 0 / 2240
Review of Systems
-
Respiratory: Reports No Symptoms
Cardiac: Reports No Symptoms
Abdomen/GI: Reports No Symptoms
Data Reviewed
-
CT Scan: Report Reviewed by me
Ultrasound: Report Reviewed by me
MRI: Report Reviewed by me
Labs: Labs Reviewed by me
[2024-12-16 16:33] LABS: Glucose - Point of Care 132 mg/dl (70-99)
[2024-12-16] MEDS: LOVENOX 40 MG SC (17:28)
[2024-12-16 21:24] LABS: Glucose - Point of Care 160 mg/dl (70-99)
[2024-12-16] MEDS: LANTUS 0.15 UNITS SC (22:41)
[2024-12-17 03:00] VITALS: BP 158/64
[2024-12-17] MEDS: SYNTHROID 125 MCG PO (05:39)
[2024-12-17 07:00] VITALS: BP 152/72
[2024-12-17 07:36] LABS: Hematocrit 38.3 % (37.0-47.0); Hemoglobin 13.1 g/dL (12.0-16.0); Mean Corp Hgb Conc. 34.2 g/dL (33.0-37.0); Mean Corpuscular Volume 85.7 fL (81.0-99.0); Platelet Count 221 10^3/uL (130-400); Red Cell Dist. Width 14.1 % (11.5-14.5)
[2024-12-17 07:43] LABS: Glucose - Point of Care 144 mg/dl (70-99)
[2024-12-17] MEDS: NOVOLOG FLEXPEN-LOW RESISTANCE SC (07:45)
[2024-12-17 08:11] LABS: ALT (SGPT) 31 U/L (0-35); AST (SGOT) 33 U/L (14-36); Albumin 3.9 g/dl (3.5-5.0); Alkaline Phosphatase 75 U/L (38-126); Blood Urea Nitrogen 13 mg/dl (7-17); Calcium 9.6 mg/dl (8.4-10.2); Carbon Dioxide 24 mmol/L (22-30); Chloride 107 mmol/L (98-107); Estimated Creatinine Clearance 95 ml/min; Glucose 146 mg/dl (70-99); Potassium 4.4 mmol/L (3.5-5.1); Sodium 138 mmol/L (135-145); Total Protein 6.9 g/dl (6.3-8.2); eGFR > 60.00
[2024-12-17] MEDS: PROCARDIA XL (EXTENDED RELEASE) 30 MG PO (08:32)
[2024-12-17] MEDS: PLAVIX 75 MG PO (08:32)
[2024-12-17] MEDS: ASPIR LOW (ENTERIC COATED) 81 MG PO (08:32)
[2024-12-17] MEDS: ZESTRIL 20 MG PO (08:32)
[2024-12-17] MEDS: VITAMIN B-12 1000 MCG PO (08:32)
[2024-12-17] MEDS: CRESTOR 40 MG PO (08:32)
--- NOTE | 2024-12-17 10:38 | CM ---
patient seen at bedside
PT rec acute rehab
awaiting physiatry consult
referral in [facility] was accepted
[facility]
for Philly in admission regarding insurance confirmation
Philly emailed CM who spoke Shon with [employer] ([phone]) and stated patient has insurance (employer self funds and will be on [employer] provided , he provided phone # to verify/auth [id number]
Philly called [phone] & the community health program representative could not find the patient under her new ID # and the accounts found under her name all termed prior. Philly was going to follow up today.
PLAN: Acute Rehab, pending physiatry consult
[2024-12-17 11:00] VITALS: BP 135/57
[2024-12-17 11:38] LABS: Glucose - Point of Care 243 mg/dl (70-99)
[2024-12-17] MEDS: NOVOLOG FLEXPEN-LOW RESISTANCE 2 UNITS SC (12:06)
--- NOTE | 2024-12-17 12:31 | W.PN.HOSP.TC ---
Today's Communication/Plan
-
physiatry recommendations
Disposition efforts
Assessment / Plan
Assessment / Plan
MRI brain
1. LARGE ACUTE and SUBACUTE INFARCTION in the RIGHT FRONTAL and PARIETAL LOBES involving both cortical fajardo matter and white matter (RIGHT MIDDLE CEREBRAL ARTERY TERRITORY).
2. Small chronic transcortical infarct in the posterior superior right parietal lobe.
3. Occlusion or severe stenosis in the RIGHT INTERNAL CAROTID ARTERY resulting in markedly decreased blood flow. Associated decreased blood flow in the right middle cerebral artery.
4. 2.0 cm chronic periventricular white matter infarct in the left frontal lobe.
5. 6 mm chronic lacunar infarct in the left thalamus.
6. Moderate periventricular white matter leukoaraiosis.
7. Mild diffuse cerebral and cerebellar volume loss.
8. Tiny chronic intraparenchymal hemorrhage in the right basal ganglia.
1. Acute subacute Right sided CVA
h/o of old stroke
- Noted to have left upper and lower extremity by PT
- Have h/o of previous stroke
- MR brain results as above
- Lipid profile ordered
- dual antiplatelet therapy with eventual replacement with the use of clopidogrel as it is unclear that aspirin has been significantly protective for the patient; starting clopidogrel now
- statin, continued
- Neuro evaluation requested for further recommendation on medication change
- Lifelong vitamin B12 replacement, initiated now
-Consult PM&R
2. Right carotid occlusion
- Visible on MR brain, dedicated CTA h&n ordered
- no afib h/o , monitor on telemetry
� High-grade stenosis of the right internal carotid artery
� Vascular consulted
� Given right carotid artery is occluded, recommend medical optimization with statin antiplatelet medication rather than surgical intervention
� Follow-up left carotid stenosis with carotid stent outpatient in roughly 6 months
� Follow-up outpatient ultrasound with vascular
3. Mechanical fall
- PT evaluated and will require rehab placement
4. Depression/anxiety
- Maintained on home dose of citalopram
5. Insulin-dependent diabetes mellitus
- Dose of long-acting insulin unclear, A1c of 7.1
- Maintained on insulin sliding scale with Lantus 15 units at bedtime
6. Essential hypertension
- Continue home dose of lisinopril/procardia
7. Hypothyroidism
- Maintained on levothyroxine
DVT OPPX - scd
Full code
Care plan discussed with neurology
Transfer to telemetry
Level of care changed to inpatient level
Anticipated Discharge: Within 24 hours
Subjective/Interval History
-
Date of Service: December 17, 2024
No acute events overnight
Objective Data
-
Labs:
Laboratory Results
12/17/24
07:17
WBC 6.2
Hgb 13.1
Hct 38.3
Plt Count 221
Sodium 138
Potassium 4.4
Chloride 107
Carbon Dioxide 24
BUN 13
Creatinine 0.6
Glucose 146 H
Calcium 9.6
Total Bilirubin 0.7
AST 33
ALT 31
Alkaline Phosphatase 75
Vital Signs:
Vital Signs
Temp Pulse Resp BP Pulse Ox
97.2 F 56 16 135/57 97
12/17/24 11:00 12/17/24 11:00 12/17/24 11:00 12/17/24 11:00 12/17/24 11:00
I&O
12/16/24 12/17/24 12/18/24
06:59 06:59 06:59
Intake Total 2240 / 2240 1560 / 1560
Balance 2240 / 2240 1560 / 1560
Review of Systems
-
Respiratory: Reports No Symptoms
Cardiac: Reports No Symptoms
Abdomen/GI: Reports No Symptoms
Data Reviewed
-
CT Scan: Report Reviewed by me
Ultrasound: Report Reviewed by me
MRI: Report Reviewed by me
Labs: Labs Reviewed by me
--- NOTE | 2024-12-17 13:08 | CON.MD ---
Consultation - Medical
-
Chief Complaint:�Difficulty walking
�
History of Present Illness:�69-year-old right-handed female with PMH (as below) presented to [facility] on 12/10/2024 with weakness and falls. She had been seen in the ED on 11/12 for weakness of the left arm following a fall lying on the
floor for 5+ hours complicated by presumed radial nerve palsy. CT of the head without acute concern. Seen by physical therapy noting some left sided weakness and left tongue deviation. Seen by neurology noting 4/5 left upper and lower extremity
strength. Noted with a right carotid occlusion and seen by vascular with plan for maximizing medical therapy for arterial disease risk factors. The right carotid was likely occluded chronically based on symptom onset with follow-up for carotid
surveillance upon discharge. To continue with dual antiplatelet therapy with aspirin/Plavix followed by lifelong Plavix as aspirin has not been significantly protective for the patient. Continues on lifelong B12 replacement.
�
Past Medical History:�CAD, CVA, HTN, HLD, hypothyroidism, IDDM, GA
Procedure History:�CABG
Family History:�Mother with Crohn's father with GA and stroke
�
Social History:�
Functional Level Premorbidly:�Independent with all activities�prior to 11/12/2024. Since then has been struggling with ADLs. She cooks cleans and does when she can. Neighbors help with meals. Her boyfriend in [place] takes her grocery shopping
and takes her close to the laundromat
Functional Level Currently:�Min assist toileting and lower extremity self-care. Min assist toilet transfer. Supervision for transfers and ambulating 40 feet x 3 with single-point cane
�
Tobacco:�Denies�
Alcohol:�Denies�
Drug use:�Denies�
�
Lives with:�Alone. Plans to move to a one-story home in [place] in the next month.
24-hour assistance available:�No
Number of floors:�1
# steps to enter:�4+1
Driving:�No
Occupation:�Works full-time from home
�
�
Allergies:�
Allergy/AdvReac Type Severity Reaction Status Date / Time
latex (Latex) Allergy Mild rash- Verified 12/10/24 16:22
slight
�
Review of Systems:�
Constitutional: (x) abNormal _fatigue
Eye: (x) Normal _
Ear/Nose/Throat: (x) Normal _
Respiratory: (x) Normal _
Cardiovascular: (x) Normal _
Gastrointestinal: (x) Normal _
Genitourinary: (x) Normal _
Musculoskeletal: (x) Normal _
Integumentary: (x) Normal _
Neurologic: (x) abNormal _left sided weakness
Psychiatric: (x) Normal _
Endocrine: (x) Normal _
Hematologic/Lymphatic: (x) Normal _
Allergic/Immunologic: (x) Normal _
�
Medications:�
Active Current Visit Medication List
Category Date Time Status
Acetaminophen [Tylenol] Med 12/11/24 01:40 Active
650 mg PO Q4HPRN PRN
Aspirin Low Dose EC [Aspir Low (Enteric Coated)] Med 12/11/24 08:00 Active
81 mg PO DAILY
Bisacodyl [Dulcolax] Med 12/11/24 01:40 Active
10 mg RECTAL [id number] PRN
Clopidogrel Bisulfate [Plavix] Med 12/16/24 08:00 Active
75 mg PO DAILY
Cyanocobalamin [Vitamin B-12] Med 12/15/24 09:00 Active
1,000 mcg PO DAILY
Dextrose 50%-Water [Dextrose 50% Syringe] Med 12/11/24 01:40 Active
12.5 grams IV [id number] PRN
Docusate W/Senna [Senokot-S] Med 12/11/24 01:40 Active
1 tablet PO BIDPRN PRN
Enoxaparin Sodium [Lovenox] Med 12/11/24 18:00 Active
40 mg SC QPM
Glucagon [GlucaGen] Med 12/11/24 01:40 Active
1 mg IM PRN PRN
Insulin Aspart Corrective Low [Novolog Flexpen-Low Med 12/11/24 07:30 Active
Resistance]
See Protocol SC AC
Insulin Glargine Lantus [Lantus] 15 units Med 12/11/24 22:00 Active
Subcutaneous Insulin Syringe [Syringe-Insulin] 0 unit
SC HS
Levothyroxine [Synthroid] Med 12/11/24 06:00 Active
125 mcg PO DAILY @ 0600
Lisinopril [Zestril] Med 12/11/24 08:00 Active
20 mg PO DAILY
NIFEdipine EXTENDED RELEASE [Procardia Xl (Extended Med 12/13/24 12:00 Active
Release)]
30 mg PO DAILY
Polyethylene Glycol Powder [Miralax] Med 12/11/24 01:40 Active
17 grams PO DAILYPRN PRN
Rosuvastatin Calcium [Crestor] Med 12/11/24 08:00 Active
40 mg PO DAILY
�
Vitals:�
Temp Pulse Resp BP Pulse Ox
97.2 F 56 16 135/57 97
12/17/24 11:00 12/17/24 11:00 12/17/24 11:00 12/17/24 11:00 12/17/24 11:00
Height 5 ft 4 in
Actual Weight 84.935 kg
Body Mass Index (BMI) 32.2
�
Physical Exam:�
General Appearance/Observation: Well-developed, well-nourished female in no apparent distress.�
Pain/Comfort Assessment: Denies�
Mood/Affect: Appropriate�
�
Integumentary/Operative Site:�has some scabs over the knees, healing well.
�� Pressure Ulcer Evaluation: absent over heels.�
�
Eyes: Conjunctiva/Lids: normal��� Pupils: pupils equal round and reactive to light
Ears/Nose/Throat: oral mucosa moist, throat clear.������������ Lips/Teeth/Gums: Missing almost all teeth
Cardiovascular: Heart: regular, no murmur�
Pulses: dorsalis pedis 2+ bilaterally�
Respiratory: Respiratory Effort/Chest Expansion: normal������ Auscultation: Clear to auscultation bilaterally
Gastrointestinal: abdomen not tender, no distension, normal abdominal bowel sounds
Genitourinary: No Plummer�
Rectal Exam: Deferred�
Extremities:�Edema: None�Cyanosis: None�Trophic�changes: None
�
Neurology Exam:
Orientation: Alert, Oriented to self, Time, Place�
Memory: Intact for recent medical concerns
Repetition: Intact
Comprehension: Intact
Two step command: Intact
Naming: Intact
Can read the appropriate time of a clock across the room
Cranial Nerves:
�� CNII:�Pupillary light reflex: Intact���Visual Field: Intact
�� CN III, IV, : Extraocular muscles: Intact�
�� CN V:�Facial Sensation�at�Forehead: Intact,�Maxilla: Intact,�Mandible: Intact
�� CN VII:�Facial movement: Mild left facial weakness,
�� CN VIII:�Hearing: Normal
�� CN IX/X:�Speech & swallow: Mild dysarthria�position of Uvula: Midline
�� CN XI:�Shoulder shrug: Slight decreased on the left
�� CN XII:�Tongue protrusion: Midline
Sensory:
�� Light touch: Intact in bilateral upper and lower extremities, except for a little bit decreased left hand compared to right nondermatomal
�
Reflexes:
�� Biceps: 2+ right, 3+ left
�� Brachioradialis: 2+ right, 3+ left
�� Triceps: 2+ right, 3+ left
�� Patellar: 2+ right, 3+ left
�� Achilles: 0 bilaterally
�� Babinski: Down going bilaterally
�� Clonus: None
�� Anisa: Negative bilaterally�
Cerebellar: Dysmetria/Ataxia: Present on the left, absent on the right
Musculoskeletal: Motor: (Manual muscle scale 0-5)�4/5 left upper and lower extremity. 5/5 right upper lower extremity.
Tone: Normal in all extremities�
Range of Motion: Passively within normal limits in all extremities�
�
Lab Results
Laboratory Data
12/17/24 07:17
12/17/24 07:17
Total Bilirubin 0.7 mg/dl (0.2-1.3) 12/17/24 07:17
AST 33 U/L (14-36) 12/17/24 07:17
ALT 31 U/L (0-35) 12/17/24 07:17
Alkaline Phosphatase 75 U/L (38-126) 12/17/24 07:17
Total Protein 6.9 g/dl (6.3-8.2) 12/17/24 07:17
Albumin 3.9 g/dl (3.5-5.0) 12/17/24 07:17
�
Diagnostic Results:�as per HPI�
�
Assessment
69 y/o F PMH (CAD, CVA, HTN, HLD, hypothyroidism, IDDM, GA�) with 12/10/2024 left hemiparesis from right MCA infarct resulting in ADL and amatory dysfunction.
Plan�
PM&R�PT/OT to increase independence with ADLs, improve balance, coordination, endurance, strength, mobility, community reintegration, decreased burden of care on others and family education.�
�
CVA: Secondary prophylaxis with aspirin and clopidogrel for 21 days followed by clopidogrel lifelong, statin, and blood pressure control (SBP less than 180 and diastolic less than 100 to participate with therapy for ischemic stroke). Continue to
monitor neurologic status.�
Left nondominant hemiparesis: High risk for falls and sliding out of chair/bed. Safety reinforced.�
- Avoid using affected arm to help lift or pull patient as this will cause trauma to the shoulder.
Mild dysarthria: Speech
B12 deficiency: B12 supplement
HTN: Lisinopril 20 mg daily, nifedipine 30 mg daily, monitor closely�
HLD: Statin�
Coronary artery disease: Aspirin, statin, not on beta-janice�
�����������������������������������������
DM II: Accu-Cheks, insulin sliding scale, lantus.�
Hypothyroidism: levothyroxine�
Pain: acetaminophen as needed.�
Bowel: Colace/senna or MiraLAX PRN.�
Bladder: Time void, PVRs, PRN straight cath.�
DVT Prophylaxis: Mechanical and Lovenox
Pulmonary: Incentive spirometry�
Obesity: Continue to certified substance abuse counselor patient about diet adjustments to control obesity. Body habitus and increased force to move body and extremities causes further difficulty with functional tasks.�
Safety: Continue to reinforce assistance with all transfers.�
Code Status:� Full code
Dispo�(date/plan/equipment needs): Home with family care.� Social history reviewed.�
Functional and Medical Goals:�Modified Independent with ADL�s, ambulation, transfers�
Discharge Destination:�senior living facility, after discussion with patient, goals of care, overall plans.
A total of 60 minutes were spent with the patient preparing for the evaluation, obtaining history, performing examination and evaluation, counseling, data review, case management, care coordination, borderer, and EMR documentation.
�
Thank you for allowing me to care for your patient. Please contact me with any questions or concerns.
Consultation
-
Date/Time Consultation Requested: 12/16/2024
Date/Time Consultation Performed: 12/17/2024
Requesting Provider: Dr. Beka Corley
Performing Provider: Dr. Jeremiah Guerrero
Reason for Consultation: Home
[2024-12-17 15:00] VITALS: BP 112/50
[2024-12-17 16:37] LABS: Glucose - Point of Care 175 mg/dl (70-99)
[2024-12-17] MEDS: NOVOLOG FLEXPEN-LOW RESISTANCE 1 UNITS SC (16:39)
[2024-12-17] MEDS: LOVENOX 40 MG SC (17:00)
[2024-12-17 19:00] VITALS: BP 125/49
[2024-12-17 21:54] LABS: Glucose - Point of Care 198 mg/dl (70-99)
[2024-12-17 23:00] VITALS: BP 132/55
[2024-12-17] MEDS: LANTUS 0.15 UNITS SC (23:12)
[2024-12-18 03:00] VITALS: BP 118/54
[2024-12-18] MEDS: SYNTHROID 125 MCG PO (05:30)
[2024-12-18 07:25] VITALS: BP 125/60
[2024-12-18 08:02] LABS: Glucose - Point of Care 135 mg/dl (70-99)
[2024-12-18 08:44] LABS: Hematocrit 42.1 % (37.0-47.0); Hemoglobin 14.2 g/dL (12.0-16.0); Mean Corp Hgb Conc. 33.7 g/dL (33.0-37.0); Mean Corpuscular Volume 86.6 fL (81.0-99.0); Platelet Count 250 10^3/uL (130-400); Red Cell Dist. Width 14.2 % (11.5-14.5)
[2024-12-18] MEDS: NOVOLOG FLEXPEN-LOW RESISTANCE SC (09:01)
[2024-12-18] MEDS: ASPIR LOW (ENTERIC COATED) 81 MG PO (09:03)
[2024-12-18] MEDS: VITAMIN B-12 1000 MCG PO (09:04)
[2024-12-18] MEDS: ZESTRIL 20 MG PO (09:04)
[2024-12-18] MEDS: PLAVIX 75 MG PO (09:04)
[2024-12-18] MEDS: PROCARDIA XL (EXTENDED RELEASE) 30 MG PO (09:05)
[2024-12-18] MEDS: CRESTOR 40 MG PO (09:06)
[2024-12-18 09:38] LABS: ALT (SGPT) 30 U/L (0-35); AST (SGOT) 28 U/L (14-36); Albumin 4.3 g/dl (3.5-5.0); Alkaline Phosphatase 81 U/L (38-126); Blood Urea Nitrogen 15 mg/dl (7-17); Calcium 9.7 mg/dl (8.4-10.2); Carbon Dioxide 21 mmol/L (22-30); Chloride 108 mmol/L (98-107); Estimated Creatinine Clearance 95 ml/min; Glucose 142 mg/dl (70-99); Potassium 4.8 mmol/L (3.5-5.1); Sodium 137 mmol/L (135-145); Total Protein 7.8 g/dl (6.3-8.2); eGFR > 60.00
--- NOTE | 2024-12-18 10:55 | CM ---
patient eval by physiatry - rec SNF
spoke with Tiffanie at [facility] & will accept patient
spoke with patient and agreeable to [facility] [place] [facility]: [id number]
Dr. Sky Baird NPI #: [id number]
CM spoke with Philly in Admissions confirmed ins. - [employer] insurance entered in [facility]
Policy #:[id number]
CM called [employer] ins [phone] & spoke with Marcia Guzman
Start date 12/18/24, Pending reference #: [id number]
CM Faxed clinicals [phone] per Marcia Guzman
stated that the determination will be sent via fax
PLAN: [facility], once auth approved
--- NOTE | 2024-12-18 11:59 | W.PN.HOSP.TC ---
Today's Communication/Plan
-
DAPT
F/u Carotid US and vascular outpt
F/u Neuro, PCP outpt
F/u labs in 1 week
Assessment / Plan
Assessment / Plan
MRI brain
1. LARGE ACUTE and SUBACUTE INFARCTION in the RIGHT FRONTAL and PARIETAL LOBES involving both cortical fajardo matter and white matter (RIGHT MIDDLE CEREBRAL ARTERY TERRITORY).
2. Small chronic transcortical infarct in the posterior superior right parietal lobe.
3. Occlusion or severe stenosis in the RIGHT INTERNAL CAROTID ARTERY resulting in markedly decreased blood flow. Associated decreased blood flow in the right middle cerebral artery.
4. 2.0 cm chronic periventricular white matter infarct in the left frontal lobe.
5. 6 mm chronic lacunar infarct in the left thalamus.
6. Moderate periventricular white matter leukoaraiosis.
7. Mild diffuse cerebral and cerebellar volume loss.
8. Tiny chronic intraparenchymal hemorrhage in the right basal ganglia.
1. Acute subacute Right sided CVA
h/o of old stroke
- Noted to have left upper and lower extremity by PT
- Have h/o of previous stroke
- MR brain results as above
- Lipid profile ordered
- dual antiplatelet therapy with eventual replacement with the use of clopidogrel as it is unclear that aspirin has been significantly protective for the patient; starting clopidogrel now
- statin, continued
- Neuro evaluation requested for further recommendation on medication change
- Lifelong vitamin B12 replacement, initiated now
-Consult PM&R
2. Right carotid occlusion
- Visible on MR brain, dedicated CTA h&n ordered
- no afib h/o , monitor on telemetry
� High-grade stenosis of the right internal carotid artery
� Vascular consulted
� Given right carotid artery is occluded, recommend medical optimization with statin antiplatelet medication rather than surgical intervention
� Follow-up left carotid stenosis with carotid stent outpatient in roughly 6 months
� Follow-up outpatient ultrasound with vascular
3. Mechanical fall
- PT evaluated and will require rehab placement
4. Depression/anxiety
- Maintained on home dose of citalopram
5. Insulin-dependent diabetes mellitus
- Dose of long-acting insulin unclear, A1c of 7.1
- Maintained on insulin sliding scale with Lantus 15 units at bedtime
6. Essential hypertension
- Continue home dose of lisinopril/procardia
7. Hypothyroidism
- Maintained on levothyroxine
DVT OPPX - scd
Full code
Care plan discussed with neurology
Transfer to telemetry
Level of care changed to inpatient level
More than 30 minutes spent in discharge including
Final examination of the patient
Summarizing hospital stay
Instructions for continuing care to all relevant caregivers
Preparation of discharge records, prescriptions, and referral forms
Total time spent (in minutes): 36
Anticipated Discharge: Today
Subjective/Interval History
-
Date of Service: December 18, 2024
no acute events overnight
Objective Data
-
Labs:
Laboratory Results
12/18/24 12/18/24
08:00 08:01
WBC 6.6
Hgb 14.2
Hct 42.1
Plt Count 250
Sodium 137
Potassium 4.8
Chloride 108 H
Carbon Dioxide 21 L
BUN 15
Creatinine 0.6
Glucose 142 H
Calcium 9.7
Total Bilirubin 0.8
AST 28
ALT 30
Alkaline Phosphatase 81
Vital Signs:
Vital Signs
Temp Pulse Resp BP Pulse Ox
98.1 F 52 15 125/60 97
12/18/24 11:30 12/18/24 11:30 12/18/24 11:30 12/18/24 07:25 12/18/24 11:30
I&O
12/17/24 12/18/24 12/19/24
06:59 06:59 06:59
Intake Total 1560 / 1560 1620 / 1619
Balance 1559 / 1619
Review of Systems
-
Respiratory: Reports No Symptoms
Cardiac: Reports No Symptoms
Abdomen/GI: Reports No Symptoms
Data Reviewed
-
CT Scan: Report Reviewed by me
Ultrasound: Report Reviewed by me
MRI: Report Reviewed by me
Labs: Labs Reviewed by me
[2024-12-18 12:00] LABS: Glucose - Point of Care 160 mg/dl (70-99)
[2024-12-18] MEDS: NOVOLOG FLEXPEN-LOW RESISTANCE 1 UNITS SC (12:03)
--- NOTE | 2024-12-18 12:11 | W.DS.TRANS ---
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
-
Discharge Instructions:
Discharge Diagnosis/Procedures Acute subacute Right sided CVA
Right carotid occlusion
Diet Low Fat,Low Cholesterol
Activity As tolerated
Blood Work cbc and bmp in 5-7 days
Others Tests Your repeat carotid ultrasound is scheduled on 4
at 8 AM, here at [facility]
Instructions:
Stand-Alone Forms:
Changes to Home Medications: Yes
Discharge Medications:
DC Medications w/original date entered in [employer]
aspirin 81 mg tablet,delayed release 81 mg PO DAILY 11/08/15
citalopram 10 mg tablet 10 mg PO DAILY 11/08/15
levothyroxine 125 mcg tablet 125 mcg PO DAILY 11/08/15
rosuvastatin 40 mg tablet (Crestor) 40 mg PO DAILY 11/08/15
acetaminophen 325 mg tablet 650 mg (2 x 325 mg) PO Q4HPRN PRN mild pain/BEACH/temp> 100.4F ##0 11/10/15
lisinopril 20 mg tablet 20 mg PO DAILY ##30 11/10/15
methylprednisolone 4 mg tablets in a dose pack (Medrol (Donnie)) 4 tab PO . DIRECT ##1 11/10/15
nifedipine 30 mg tablet,extended release 30 mg PO DAILY ##30 11/10/15
Insulin Glargine Lantus [Lantus] 15 units As Directed mls/hr SC HS 12/18/24
clopidogrel 75 mg tablet 75 mg PO DAILY #0 tabs 12/18/24
cyanocobalamin (vitamin B-12) 500 mcg tablet (Vitamin B-12) 1,000 mcg (2 x 500 mcg) PO DAILY #0 tabs 12/18/24
Home Medication Changes
Insulin Glargine Lantus [Lantus] 15 units As Directed mls/hr SC HS 12/18/24
clopidogrel 75 mg tablet 75 mg PO DAILY #0 tabs 12/18/24
cyanocobalamin (vitamin B-12) 500 mcg tablet (Vitamin B-12) 1,000 mcg (2 x 500 mcg) PO DAILY #0 tabs 12/18/24
Pending Results: No
[2024-12-18 15:24] VITALS: BP 128/45
[2024-12-18 16:50] LABS: Glucose - Point of Care 207 mg/dl (70-99)
[2024-12-18] MEDS: NOVOLOG FLEXPEN-LOW RESISTANCE 2 UNITS SC (16:50)
[2024-12-18] MEDS: LOVENOX 40 MG SC (17:45)
[2024-12-18 19:34] VITALS: BP 125/67
[2024-12-18 22:00] LABS: Glucose - Point of Care 189 mg/dl (70-99)
[2024-12-18] MEDS: LANTUS 0.15 UNITS SC (22:21)
[2024-12-18 22:55] VITALS: BP 136/52
[2024-12-19 03:20] VITALS: BP 125/45
[2024-12-19] MEDS: SYNTHROID 125 MCG PO (06:35)
[2024-12-19 07:28] VITALS: BP 131/61
[2024-12-19 07:37] LABS: Hematocrit 41.4 % (37.0-47.0); Hemoglobin 13.0 g/dL (12.0-16.0); Mean Corp Hgb Conc. 31.4 g/dL (33.0-37.0); Mean Corpuscular Volume 88.3 fL (81.0-99.0); Platelet Count 210 10^3/uL (130-400); Red Cell Dist. Width 14.0 % (11.5-14.5)
[2024-12-19 07:42] LABS: Glucose - Point of Care 143 mg/dl (70-99)
[2024-12-19 08:04] LABS: ALT (SGPT) 25 U/L (0-35); AST (SGOT) 25 U/L (14-36); Albumin 4.0 g/dl (3.5-5.0); Alkaline Phosphatase 75 U/L (38-126); Blood Urea Nitrogen 14 mg/dl (7-17); Calcium 9.7 mg/dl (8.4-10.2); Carbon Dioxide 22 mmol/L (22-30); Chloride 108 mmol/L (98-107); Estimated Creatinine Clearance 95 ml/min; Glucose 150 mg/dl (70-99); Potassium 4.4 mmol/L (3.5-5.1); Sodium 138 mmol/L (135-145); Total Protein 7.0 g/dl (6.3-8.2); eGFR > 60.00
[2024-12-19] MEDS: NOVOLOG FLEXPEN-LOW RESISTANCE SC (08:10)
[2024-12-19] MEDS: ASPIR LOW (ENTERIC COATED) 81 MG PO (08:12)
[2024-12-19] MEDS: CRESTOR 40 MG PO (08:12)
[2024-12-19] MEDS: VITAMIN B-12 1000 MCG PO (08:12)
[2024-12-19] MEDS: ZESTRIL 20 MG PO (08:12)
[2024-12-19] MEDS: PROCARDIA XL (EXTENDED RELEASE) 30 MG PO (08:13)
[2024-12-19] MEDS: PLAVIX 75 MG PO (08:14)
--- NOTE | 2024-12-19 10:53 | CM ---
CM following re: discharge planning.
Reviewed pt's chart, met with pt.
According to MD pt is medically stable to be discharged today.
CM spoke to [employer] inside sales representative Galilea Kaplan and she confirmed that pt is approved for 19 initial days of SNF level of care at [facility] staring today 12/19/24 till 01/07/25 with LCD and NRD 01/07/25. Auth: [id number]. reviewer: Brenden [phone] x
[phone],
Auth information forwarded to [facility] director compliance and she confirmed that pt is accepted for admission today and 3:00 p.m. discharge time requested.
to arrange ambulance transport BLS. [facility]NC completed and left with [facility] nursing report: [phone]
Discharge instructions fax: [phone]
D/C plan: [facility]
[2024-12-19 11:00] VITALS: BP 130/62
[2024-12-19 11:29] LABS: Glucose - Point of Care 218 mg/dl (70-99)
--- NOTE | 2024-12-19 11:42 | W.PN.HOSP.TC ---
Addendum entered and electronically signed by Beka Corley MD 12/20/24 16:20:
[id number]
Original Note:
Today's Communication/Plan
-
DAPT
F/u Carotid US and vascular outpt
F/u Neuro, PCP outpt
F/u labs in 1 week
Assessment / Plan
Assessment / Plan
MRI brain
1. LARGE ACUTE and SUBACUTE INFARCTION in the RIGHT FRONTAL and PARIETAL LOBES involving both cortical fajardo matter and white matter (RIGHT MIDDLE CEREBRAL ARTERY TERRITORY).
2. Small chronic transcortical infarct in the posterior superior right parietal lobe.
3. Occlusion or severe stenosis in the RIGHT INTERNAL CAROTID ARTERY resulting in markedly decreased blood flow. Associated decreased blood flow in the right middle cerebral artery.
4. 2.0 cm chronic periventricular white matter infarct in the left frontal lobe.
5. 6 mm chronic lacunar infarct in the left thalamus.
6. Moderate periventricular white matter leukoaraiosis.
7. Mild diffuse cerebral and cerebellar volume loss.
8. Tiny chronic intraparenchymal hemorrhage in the right basal ganglia.
1. Acute subacute Right sided CVA
h/o of old stroke
- Noted to have left upper and lower extremity by PT
- Have h/o of previous stroke
- MR brain results as above
- Lipid profile ordered
- dual antiplatelet therapy with eventual replacement with the use of clopidogrel as it is unclear that aspirin has been significantly protective for the patient; starting clopidogrel now
- statin, continued
- Neuro evaluation requested for further recommendation on medication change
- Lifelong vitamin B12 replacement, initiated now
-Consult PM&R
2. Right carotid occlusion
- Visible on MR brain, dedicated CTA h&n ordered
- no afib h/o , monitor on telemetry
� High-grade stenosis of the right internal carotid artery
� Vascular consulted
� Given right carotid artery is occluded, recommend medical optimization with statin antiplatelet medication rather than surgical intervention
� Follow-up left carotid stenosis with carotid stent outpatient in roughly 6 months
� Follow-up outpatient ultrasound with vascular
3. Mechanical fall
- PT evaluated and will require rehab placement
4. Depression/anxiety
- Maintained on home dose of citalopram
5. Insulin-dependent diabetes mellitus
- Dose of long-acting insulin unclear, A1c of 7.1
- Maintained on insulin sliding scale with Lantus 15 units at bedtime
6. Essential hypertension
- Continue home dose of lisinopril/procardia
7. Hypothyroidism
- Maintained on levothyroxine
DVT OPPX - scd
Full code
Care plan discussed with neurology
Transfer to telemetry
Level of care changed to inpatient level
More than 30 minutes spent in discharge including
Final examination of the patient
Summarizing hospital stay
Instructions for continuing care to all relevant caregivers
Preparation of discharge records, prescriptions, and referral forms
Total time spent (in minutes): 36
Anticipated Discharge: Today
Subjective/Interval History
-
Date of Service: December 19, 2024
no acute events overnight
Objective Data
-
Labs:
Laboratory Results
12/19/24
07:22
WBC 6.8
Hgb 13.0
Hct 41.4
Plt Count 210
Sodium 138
Potassium 4.4
Chloride 108 H
Carbon Dioxide 22
BUN 14
Creatinine 0.6
Glucose 150 H
Calcium 9.7
Total Bilirubin 0.7
AST 25
ALT 25
Alkaline Phosphatase 75
Vital Signs:
Vital Signs
Temp Pulse Resp BP Pulse Ox
98.4 F 61 17 130/62 96
12/19/24 11:00 12/19/24 11:00 12/19/24 11:00 12/19/24 11:00 12/19/24 11:00
I&O
12/18/24 12/19/24 12/20/24
06:59 06:59 06:59
Intake Total 1620 / 1620 1140 / 1140
Balance 1620 / 1620 1140 / 1140
Review of Systems
-
Respiratory: Reports No Symptoms
Cardiac: Reports No Symptoms
Abdomen/GI: Reports No Symptoms
Physical Exam
-
General: Negative Appears in Distress
HEENT: Negative Oxygen
Neuro: Awake, Alert, Oriented and Other (LUE and LLE weakness)
Data Reviewed
-
CT Scan: Report Reviewed by me
Ultrasound: Report Reviewed by me
MRI: Report Reviewed by me
Labs: Labs Reviewed by me
--- NOTE | 2024-12-19 11:50 | W.DS.TRANS ---
DC Summary - Rehabilitation Services Coordinator
-
Discharge Instructions:
Discharge Diagnosis/Procedures Acute subacute Right sided CVA
Right carotid occlusion
Diet Low Fat,Low Cholesterol
Activity As tolerated
Blood Work cbc and bmp in 5-7 days
Others Tests Your repeat carotid ultrasound is scheduled on 4
at 8 AM, here at [facility]
Instructions:
Stand-Alone Forms:
Changes to Home Medications: Yes
Discharge Medications:
DC Medications w/original date entered in [employer]
aspirin 81 mg tablet,delayed release 81 mg PO DAILY 11/08/15
citalopram 10 mg tablet 10 mg PO DAILY 11/08/15
levothyroxine 125 mcg tablet 125 mcg PO DAILY 11/08/15
rosuvastatin 40 mg tablet (Crestor) 40 mg PO DAILY 11/08/15
acetaminophen 325 mg tablet 650 mg (2 x 325 mg) PO Q4HPRN PRN mild pain/BEACH/temp> 100.4F ##0 11/10/15
lisinopril 20 mg tablet 20 mg PO DAILY ##30 11/10/15
methylprednisolone 4 mg tablets in a dose pack (Medrol (Donnie)) 4 tab PO . DIRECT ##1 11/10/15
nifedipine 30 mg tablet,extended release 30 mg PO DAILY ##30 11/10/15
Insulin Glargine Lantus [Lantus] 15 units As Directed mls/hr SC HS 12/18/24
clopidogrel 75 mg tablet 75 mg PO DAILY #0 tabs 12/18/24
cyanocobalamin (vitamin B-12) 500 mcg tablet (Vitamin B-12) 1,000 mcg (2 x 500 mcg) PO DAILY #0 tabs 12/18/24
Home Medication Changes
Insulin Glargine Lantus [Lantus] 15 units As Directed mls/hr SC HS 12/18/24
clopidogrel 75 mg tablet 75 mg PO DAILY #0 tabs 12/18/24
cyanocobalamin (vitamin B-12) 500 mcg tablet (Vitamin B-12) 1,000 mcg (2 x 500 mcg) PO DAILY #0 tabs 12/18/24
Pending Results: No
[2024-12-19] MEDS: NOVOLOG FLEXPEN-LOW RESISTANCE 2 UNITS SC (12:34)
--- NOTE | 2024-12-19 14:01 | PTCARENOTE ---
RN spoke with WILMAN Bah from [facility] to give report on this pt. Willa had no further questions regarding pt.
[2024-12-19 15:28] VITALS: BP 113/58
== END 2024-12-19 16:03 | DRG 67 ==
LOC: 3 WEST ACU 09:38
PROVIDERS: Hospitalist; Nurse Practitioner; ADMITTING PHYSICIAN Internal Medicine; ATTENDING PHYSICIAN Internal Medicine; CONSULT PHYSICIAN Physical Medicine & Rehabilitation; CONSULT PHYSICIAN Psychiatry & Neurology Neurology; EMERGENCY PHYSICIAN Emergency Medicine; FAMILY PHYSICIAN Family Medicine; OTHER PHYSICIAN Surgery Vascular Surgery
DX: I65.23 Occlusion and stenosis of bilateral carotid arteries (principal); I63.511 Cerebral infarction due to unspecified occlusion or stenosis of right middle cerebral artery; G81.94 Hemiplegia, unspecified affecting left nondominant side; N39.0 Urinary tract infection, site not specified; Z87.891 Personal history of nicotine dependence; F32.A Depression, unspecified; F41.9 Anxiety disorder, unspecified; Z79.4 Long term (current) use of insulin; E11.9 Type 2 diabetes mellitus without complications; I10 Essential (primary) hypertension; E03.9 Hypothyroidism, unspecified; E53.8 Deficiency of other specified B group vitamins; I25.10 Atherosclerotic heart disease of native coronary artery without angina pectoris; I25.2 Old myocardial infarction; Z79.82 Long term (current) use of aspirin; Z79.899 Other long term (current) drug therapy; Z82.3 Family history of stroke; Z82.49 Family history of ischemic heart disease and other diseases of the circulatory system; I69.322 Dysarthria following cerebral infarction; Z11.52 Encounter for screening for COVID-19
CPT/HCPCS: 70450; 70496; 70498; 70551; 80048; 80053; 80061; 81003; 81015; 82550; 82607; 82746; 82962; 83036; 84439; 84443; 85025; 85027; 87086; 87811; 92507; 92523; 93005; 93880; 93971; 97110; 97112; 97116; 97129; 97163; 97164; 97167; 97530; 97535; 99285; Q9967

== ENCOUNTER → 2024-12-24 14:11 | Outpatient (REF) | payer OTHER, SELFPAY ==
[2024-12-24 14:40] LABS: Hematocrit 41.6 % (37.0-47.0); Hemoglobin 13.8 g/dL (12.0-16.0); Mean Corp Hgb Conc. 33.2 g/dL (33.0-37.0); Mean Corpuscular Volume 86.8 fL (81.0-99.0); Nucleated Red Blood Cells % 0 %; Platelet Count 263 10^3/uL (130-400); Red Cell Dist. Width 13.8 % (11.5-14.5)
[2024-12-24 15:45] LABS: Blood Urea Nitrogen 21 mg/dl (7-17); Calcium 9.7 mg/dl (8.4-10.2); Carbon Dioxide 27 mmol/L (22-30); Chloride 104 mmol/L (98-107); Glucose 157 mg/dl (70-99); HDL Cholesterol 62 mg/dl; LDL Cholesterol, Calculated 72 mg/dl; Potassium 4.4 mmol/L (3.5-5.1); Sodium 138 mmol/L (135-145); Very Low Density Lipoprotein 45 mg/dl (0-30); eGFR > 60.00
[2024-12-24 16:03] LABS: Vitamin D, 25-OH*** < 12.8 ng/mL (30-80)
[2024-12-24 16:16] LABS: TSH 2.21 uIU/ml (0.47-4.68)
[2024-12-24 16:36] LABS: Vitamin B12 680 pg/ml (239-931)
[2024-12-29 02:07] LABS: Vitamin B6 Results 18.9 nmol/L (20.0-125.0)
== END ==
LOC: OLABN 14:11
PROVIDERS: ATTENDING PHYSICIAN Student in an Organized Health Care Education/Training Program
DX: I63.9 Cerebral infarction, unspecified (principal); E03.9 Hypothyroidism, unspecified; E11.9 Type 2 diabetes mellitus without complications; D55.9 Anemia due to enzyme disorder, unspecified; E53.1 Pyridoxine deficiency
CPT/HCPCS: 36415; 80048; 80061; 82306; 82607; 84207; 84443; 85025

== ENCOUNTER 2025-03-01 16:21 | Emergency (ER) | payer OTHER, SELFPAY ==
[2025-03-01 16:26] VITALS: BP 116/70
[2025-03-01 19:38] VITALS: BMI 31.0
--- NOTE | 2025-03-01 19:38 | ED.GENMED ---
History of Present Illness
General
Chief Complaint: Fall
Source: patient
Exam Limitations: none
Time Seen by Provider: 03/01/25 19:21
Nursing documentation reviewed up to this point in time: agreed with
History of Present Illness
History of Present Illness:
Patient to the emergency department for evaluation after a fall at home. She fell from a standing position onto a carpeted floor. She admits hitting her head but denies LOC. She admits to 1 alcohol beverage as well as marijuana use prior to her
fall tonight. Brought to the ED via EMS for evaluation. On arrival to ED she is awake alert and oriented in no distress.
Past History
Past History
ED Past Medical History: CAD, CVA, HTN, Hypercholesterolemia, Hypothyroidism, Other (Thyroid storm, diabetes) and Other (Previous stroke, diabetes, CABG, status post AZ, hypertension, hypothyroidism)
ED Past Surgical History: Other (cabg)
Social History
Tobacco: Non-smoker
Alcohol: None
Employment: Employed
Family History
Family History: Other (Mother with Crohn's father with AZ and stroke)
Review of Systems
Review of Systems
Allergies reviewed?: Yes
All Other Systems: ROS reviewed and negative except as documented in HPI and ROS
Constitutional: Reports no symptoms
EENT: Reports no symptoms
Respiratory: Reports no symptoms
Cardiac: Reports no symptoms
ABD/GI: Reports no symptoms
: Reports no symptoms
Musculoskeletal: Reports no symptoms
Skin: Reports no symptoms
Neurological: Reports no symptoms
Psychiatric: Reports no symptoms
Phy Exam
General Physical Exam
General Presentation: well appearing and no apparent distress
General age: appears stated age
General Skin: warm and dry
General Habitus: normal
General Mental: alert
ENT Exam
ENT Exam: EOMI, TM's normal and neck supple
Eye Exam
Eye Exam: PERRL, EOMI, conjunctiva normal and globe normal
Cardiovascular Exam
Cardiovascular Exam: regular rate/rhythm and no edema
Pulmonary Exam
Pulmonary Exam: no respiratory distress and chest non tender
Neurological Exam
Neurological Exam: alert, oriented x3, CN II-XII intact, no motor deficits, no sensory deficits, speech normal and normal gait
[place] Coma Scale
Eye Opening: Spontaneous
Verbal Response: Oriented
Motor Response: Obeys Commands
GCS Total Score: 15
Musculoskeletal Exam
Musculoskeletal Exam: full ROM and neuro vasc intact
Skin Exam
Skin Exam: normal color, warm/dry and no rash
Psychiatric Exam
Psychiatric Exam: normal mood/affect
Course
Orders/Labs/Results
Orders:
Orders
03/01/25 16:30
CT Cervical Spine W/o Iv Contr Urgent
Reason For Exam: fall head strike neck pain
CT Head W/o Iv Contrast Urgent
Comment:
Reason For Exam: fall head strike on plavix
Vital Signs
Initial and Last Documented VS:
Initial Vital Signs
Temp Pulse Resp BP Pulse Ox
97.6 F 65 20 116/70 99
03/01/25 16:26 03/01/25 16:26 03/01/25 16:26 03/01/25 16:26 03/01/25 16:26
Last Documented Vital Signs
Temp Pulse Resp BP Pulse Ox
97.8 F 56 13 130/57 97
03/01/25 19:43 03/01/25 19:43 03/01/25 19:43 03/01/25 19:43 03/01/25 19:43
*Radiology
Radiology exam reviewed: radiology read reviewed
*Pulse Oximetry
SaO2: 99
Oxygen Mode of Delivery: Room air
Patient hypoxic: no
*Critical Care Note
Total Time (30-74mins, 75-104mins- exclusive of procedures): Not Applicable
Update Note
Update Note:
Patient to ED for evaluation after a fall at home. She fell from a standing position hitting her head on the floor. No LOC. She remains awake alert and oriented x 3. Vital signs are stable she remains afebrile. CT of head and neck completed, no
acute findings noted. There are no injuries noted on her physical examination. Neurologically she is at her baseline. She will be discharged home, will follow-up with her family doctor. She was given instructions on signs and symptoms to return
to the emergency department and she is agreeable to this plan.
ED Attending Note
-
Portions of this chart may have been created with voice recognition software.� Occasional wrong word or��sound alike� substitutions may have occurred due to the inherent limitations of voice recognition software.
Discharge Plan
Departure
Patient Disposition: Home (Routine Discharge)
Date of Disposition: 03/01/25
Time of Disposition: 19:37
Patient with high blood pressure during this ER visit?: No
Condition: Good
Discharge Problem:
Head injury
Instructions: Head Injury in Adults (DC), Preventing falls in adults
Prescriptions:
No Action
citalopram 10 MG tablet
10 mg PO DAILY
aspirin 81 MG tablet,delayed release (DR/EC)
81 mg PO DAILY
levothyroxine 125 MCG tablet
125 mcg PO DAILY
rosuvastatin [Crestor] 40 MG tablet
40 mg PO DAILY
acetaminophen 325 MG tablet
650 mg PO Q4HPRN PRN (Reason: mild pain/BEACH/temp> 100.4F) Qty: 0 0RF
lisinopril 20 MG tablet
20 mg PO DAILY Qty: 30 0RF
nifedipine 30 MG tablet extended release
30 mg PO DAILY Qty: 30 0RF
methylprednisolone [Medrol (Donnie)] 4 MG tablets,dose pack
4 tab PO . DIRECT Qty: 1 0RF
clopidogrel 75 mg Tablet
75 mg PO DAILY Qty: 0 0RF
Insulin Glargine Lantus [Lantus] 15 UNITS
Subcutaneous Insulin Syringe [Syringe-Insulin] 0 UNIT
As Directed mls/hr SC HS
Ordered By: Beka Corley MD
Last Taken: Unknown
cyanocobalamin (vitamin B-12) [Vitamin B-12] 500 mcg Tablet
1,000 mcg PO DAILY Qty: 0 0RF
Activity Restrictions/Additional Instructions:
Follow-up with your family doctor
Interventions
Interventions:
*General Assessment Last Done: 03/01/25 16:26
*Neglect/Abuse Screening Last Done: 03/01/25 16:26
*ED COVID-19 Vaccine History Last Done: 03/01/25 19:39
*ED Influenza Vaccine History Last Done: 03/01/25 19:39
[facility] Fall Risk Assessment Tool Last Done: 03/01/25 19:39
*Risk Screen - Suicide (C-SSRS) Last Done: 03/01/25 16:26
*Nursing Disposition Last Done: 03/01/25 21:00
ED-Musculoskeletal Assessment Last Done: 03/01/25 19:39
ED- Neurological Assessment Last Done: 03/01/25 19:39
ED-Skin Assessment Last Done: 03/01/25 19:39
Discharge Date and Time
Discharge Date/Time: 03/01/25 21:00
Print Language: KITTITIAN
[2025-03-01 19:43] VITALS: BP 130/57
== END 2025-03-01 21:00 | disposition home or self-care (01) ==
LOC: EMR 16:21
PROVIDERS: EMERGENCY PHYSICIAN Emergency Medicine; FAMILY PHYSICIAN Family Medicine
DX: S09.90XA Unspecified injury of head, initial encounter (principal); W01.0XXA Fall on same level from slipping, tripping and stumbling without subsequent striking against object, initial encounter; Y92.009 Unspecified place in unspecified non-institutional (private) residence as the place of occurrence of the external cause; E11.9 Type 2 diabetes mellitus without complications; I25.810 Atherosclerosis of coronary artery bypass graft(s) without angina pectoris; I10 Essential (primary) hypertension; E78.00 Pure hypercholesterolemia, unspecified; E03.9 Hypothyroidism, unspecified; I25.2 Old myocardial infarction; Z79.02 Long term (current) use of antithrombotics/antiplatelets; Z79.82 Long term (current) use of aspirin; Z79.4 Long term (current) use of insulin; Z95.1 Presence of aortocoronary bypass graft; Z86.73 Personal history of transient ischemic attack (TIA), and cerebral infarction without residual deficits; Z82.49 Family history of ischemic heart disease and other diseases of the circulatory system; Z82.3 Family history of stroke
CPT/HCPCS: 99284; 70450; 72125